=== PATIENT | male | born 1980 | race Caucasian/White ===

== ENCOUNTER 2020-01-10 20:08 | Inpatient (IN) | payer SELFPAY ==
[2020-01-10] MEDS ORDERED: Sodium Chloride 0.9% 2.5 ML Syringe FLUSH PRN (20:28)
[2020-01-10] MEDS ORDERED: Aspirin 81 MG Tab.Chew PO ONE (20:28)
[2020-01-10] MEDS ORDERED: LORazepam 2 MG/ML SDV IVPUSH ONE (20:28)
[2020-01-10] MEDS ORDERED: MVI, Adult with Vitamin K 10 ML, Thiamine 100 MG, Folic Acid 1 MG in Sodium Chloride 0.... IV ONE ×4 (20:30)
--- NOTE | 2020-01-10 20:32 | EDM.PDOC ---
ED HPI GENERAL MEDICAL PROBLEM - General Chief Complaint: Cardiovascular Problem Stated Complaint: SOB Time Seen by Provider: 01/10/20 20:16 Source of Information: Reports: Patient History Limitations: Reports: No Limitations - History of Present Illness INITIAL COMMENTS - FREE TEXT/NARRATIVE: 39-year-old male with history of hypertension and anxiety presents with left sided nonradiating chest "burning" discomfort 30 minutes prior to arrival, associated with shortness of breath and feeling shaky. He was prescribed hypertensive medications but he did not take it electively because of concerns of how it might make him feel. He started his alcohol drinking binge about 2 weeks ago when his left him, he is not suicidal, but he has been drinking every day since. His last drink was 6 hours ago. He denies drug use. He admits that he is in a lot of stress. ROS: A 10-point review of systems, other than pertinent positives and negatives as stated per HPI, is otherwise negative PHYSICAL EXAM General: AOx4, GCS = 15, anxious HEENT: dry mucous membrane Neck: supple, no meningismus, no Kernig or Brudzinski Cardiac: S1S2 tachycardia Respiratory: CTAB, no crackles or rales, no wheezing Abdomen: Soft, nontender, no rebound or guarding, nondistended, no pulsatile mass. Back: nontender Musculoskeletal: NVI distally, no deformity, tremulous Neuro: No focal deficits, CN 2 - 12 WNL. MEDICAL DECISION MAKING: I reviewed the patients past medical records, lab and radiographic findings. I discussed the case with family members. My differential diagnosis included: Electrolyte abnormality, anxiety, alcohol withdrawal, ACS. Patient exhibited transaminitis, his lipase was 2250, his chest pain is likely secondary to-year-old pancreatitis. His EKG was unremarkable, his troponin was also unremarkable. I do not suspect underlying ACS. His alcohol level was undetectable, he was tremulous and tachycardic, he was exhibiting alcohol withdrawal, improved with IV Ativan in the ER. - Related Data Allergies Allergy/AdvReac Type Severity Reaction Status Date / Time cough medicine Allergy Seizure Uncoded 01/10/20 20:15 Home Meds: Home Meds High Blood Pressure 1 tab PO DAILY 01/10/20 [History] LORazepam [Ativan] 1 mg PO ASDIRECTED 01/10/20 [History] Past Medical History Cardiovascular History: Reports: Hypertension Respiratory History: Reports: None Genitourinary History: Reports: None Musculoskeletal History: Reports: None Neurological History: Reports: None Psychiatric History: Reports: Anxiety Endocrine/Metabolic History: Reports: None Hematologic History: Reports: None Immunologic History: Reports: None Oncologic (Cancer) History: Reports: None Dermatologic History: Reports: None - Infectious Disease History Infectious Disease History: Reports: None - Past Surgical History Head Surgeries/Procedures: Reports: None Other HEENT Surgeries/Procedures: LABRUM GI Surgical History: Reports: Appendectomy Social & Family History - Tobacco Use Smoking Status *Q: Current Every Day Smoker Years of Tobacco use: 16 Packs/Tins Daily: 0.5 - Recreational Drug Use Recreational Drug Use: No ED ROS GENERAL - Review of Systems Review Of Systems: Comprehensive ROS is negative, except as noted in HPI. ED EXAM, GENERAL - Physical Exam Exam: See Below (see dictation) EKG INTERPRETATION EKG Interpretation Comments: 108 bpm, Sinus tach, normal QRS interval, no STEMI. EKG and rhythm strip interpreted by me at 0810 Course - Vital Signs Last Recorded V/S: Last Vital Signs Temp 97.1 F 01/10/20 20:12 Pulse 84 01/10/20 23:30 Resp 18 01/10/20 23:30 BP 171/105 H 01/10/20 23:30 Pulse Ox 97 01/10/20 23:30 - Orders/Labs/Meds Orders: Active Orders 24 hr Category Date Time Status Admission Status [Patient Status] [ADT] Stat ADT 01/11/20 00:08 Ordered EKG Documentation Completion [RC] STAT Care 06/20/20 20:28 Active TROPONIN I [CHEM] Stat Lab 01/11/20 00:05 Ordered Sodium Chloride 0.9% [Saline Flush] Med 01/10/20 20:28 Active 2.5 ml FLUSH ASDIRECTED PRN Saline Lock Insert [OM.PC] Stat Oth 01/10/20 20:28 Ordered Medication Orders Sodium Chloride (Saline Flush) 2.5 ml FLUSH ASDIRECTED PRN PRN Reason: Keep Vein Open Labs: Laboratory Tests 01/10/20 01/10/20 01/10/20 Range/Units 20:15 20:15 20:15 WBC 8.49 (4.0-11.0) K/uL RBC 4.58 (4.50-5.90) M/uL Hgb 15.7 (13.0-17.0) g/dL Hct 45.0 (38.0-50.0) % MCV 98.3 H (80.0-98.0) fL MCH 34.3 H (27.0-32.0) pg MCHC 34.9 (31.0-37.0) g/dL RDW Std Deviation 49.2 (28.0-62.0) fl RDW Coeff of Katlyn 14 (11.0-15.0) % Plt Count 173 (150-400) K/uL MPV 10.10 (7.40-12.00) fL Neut % (Auto) 69.7 (48.0-80.0) % Lymph % (Auto) 15.1 L (16.0-40.0) % [place] % (Auto) 14.3 (0.0-15.0) % Eos % (Auto) 0.4 (0.0-7.0) % Baso % (Auto) 0.5 (0.0-1.5) % Neut # (Auto) 5.9 H (1.4-5.7) K/uL Lymph # (Auto) 1.3 (0.6-2.4) K/uL [place] # (Auto) 1.2 H (0.0-0.8) K/uL Eos # (Auto) 0.0 (0.0-0.7) K/uL Baso # (Auto) 0.0 (0.0-0.1) K/uL Nucleated RBC % 0.0 /100WBC Nucleated RBCs # 0 K/uL Sodium 137 (136-148) mmol/L Potassium 3.4 L (3.5-5.1) mmol/L Chloride 99 (98-107) mmol/L Carbon Dioxide 24.5 (21.0-32.0) mmol/L BUN 13 (7.0-18.0) mg/dL Creatinine 0.9 (0.8-1.3) mg/dL Est Cr Clr Drug Dosing 112.38 mL/min Estimated GFR (MDRD) > 60.0 ml/min Glucose 132 H (74-106) mg/dL Calcium 9.8 (8.5-10.1) mg/dL Phosphorus 3.9 (2.6-4.7) mg/dL Magnesium 1.7 L (1.8-2.4) mg/dL Total Bilirubin 1.3 H (0.2-1.0) mg/dL AST 161 H (15-37) IU/L ALT 148 H (14-63) IU/L Alkaline Phosphatase 105 (46-116) U/L Troponin I <0.050 (0.000-0.056) ng/mL Total Protein 8.4 H (6.4-8.2) g/dL Albumin 4.5 (3.4-5.0) g/dL Globulin 3.9 (2.6-4.0) g/dL Albumin/Globulin Ratio 1.2 (0.9-1.6) Lipase 2250 H (73-393) U/L Free T4 0.96 (0.76-1.46) ng/dL TSH 3rd Generation 2.18 (0.36-3.74) uIU/mL Urine Color Urine Appearance Urine pH (5.0-8.0) Ur Specific [place] (1.001-1.035) Urine Protein (NEGATIVE) mg/dL Urine Glucose (UA) (NEGATIVE) mg/dL Urine Ketones (NEGATIVE) mg/dL Urine Occult Blood (NEGATIVE) Urine Nitrite (NEGATIVE) Urine Bilirubin (NEGATIVE) Urine Urobilinogen (<2.0) EU/dL Ur Leukocyte Esterase (NEGATIVE) Urine RBC (0-2/HPF) Urine WBC (0-5/HPF) Ur Epithelial Cells (NONE-FEW) Calcium Oxalate Crystal (NEGATIVE) Urine Bacteria (NEGATIVE) Urine Mucus (NONE-MOD) Urine Opiates Screen (NEGATIVE) Ur Oxycodone Screen (NEGATIVE) Urine Methadone Screen (NEGATIVE) Ur Barbiturates Screen (NEGATIVE) Ur Phencyclidine Scrn (NEGATIVE) Ur Amphetamine Screen (NEGATIVE) U Methamphetamines Scrn (NEGATIVE) U Benzodiazepines Scrn (NEGATIVE) U Cocaine Metab Screen (NEGATIVE) U Marijuana (THC) Screen (NEGATIVE) Ethyl Alcohol < 3.0 mg/dL 01/10/20 01/10/20 Range/Units 23:30 23:30 WBC (4.0-11.0) K/uL RBC (4.50-5.90) M/uL Hgb (13.0-17.0) g/dL Hct (38.0-50.0) % MCV (80.0-98.0) fL MCH (27.0-32.0) pg MCHC (31.0-37.0) g/dL RDW Std Deviation (28.0-62.0) fl RDW Coeff of [place] (11.0-15.0) % Plt Count (150-400) K/uL MPV (7.40-12.00) fL Neut % (Auto) (48.0-80.0) % Lymph % (Auto) (16.0-40.0) % [place] % (Auto) (0.0-15.0) % Eos % (Auto) (0.0-7.0) % Baso % (Auto) (0.0-1.5) % Neut # (Auto) (1.4-5.7) K/uL Lymph # (Auto) (0.6-2.4) K/uL [place] # (Auto) (0.0-0.8) K/uL Eos # (Auto) (0.0-0.7) K/uL Baso # (Auto) (0.0-0.1) K/uL Nucleated RBC % /100WBC Nucleated RBCs # K/uL Sodium (136-148) mmol/L Potassium (3.5-5.1) mmol/L Chloride (98-107) mmol/L Carbon Dioxide (21.0-32.0) mmol/L BUN (7.0-18.0) mg/dL Creatinine (0.8-1.3) mg/dL Est Cr Clr Drug Dosing mL/min Estimated GFR (MDRD) ml/min Glucose (74-106) mg/dL Calcium (8.5-10.1) mg/dL Phosphorus (2.6-4.7) mg/dL Magnesium (1.8-2.4) mg/dL Total Bilirubin (0.2-1.0) mg/dL AST (15-37) IU/L ALT (14-63) IU/L Alkaline Phosphatase (46-116) U/L Troponin I (0.000-0.056) ng/mL Total Protein (6.4-8.2) g/dL Albumin (3.4-5.0) g/dL Globulin (2.6-4.0) g/dL Albumin/Globulin Ratio (0.9-1.6) Lipase (73-393) U/L Free T4 (0.76-1.46) ng/dL TSH 3rd Generation (0.36-3.74) uIU/mL Urine Color YELLOW Urine Appearance SLT CLOUDY Urine pH 6.5 (5.0-8.0) Ur Specific [place] 1.025 (1.001-1.035) Urine Protein TRACE H (NEGATIVE) mg/dL Urine Glucose (UA) NEGATIVE (NEGATIVE) mg/dL Urine Ketones NEGATIVE (NEGATIVE) mg/dL Urine Occult Blood MODERATE H (NEGATIVE) Urine Nitrite NEGATIVE (NEGATIVE) Urine Bilirubin NEGATIVE (NEGATIVE) Urine Urobilinogen 1.0 (<2.0) EU/dL Ur Leukocyte Esterase NEGATIVE (NEGATIVE) Urine RBC 5-10 (0-2/HPF) Urine WBC 0-3 (0-5/HPF) Ur Epithelial Cells RARE (NONE-FEW) Calcium Oxalate Crystal MODERATE (NEGATIVE) Urine Bacteria FEW (NEGATIVE) Urine Mucus MODERATE (NONE-MOD) Urine Opiates Screen NEGATIVE (NEGATIVE) Ur Oxycodone Screen NEGATIVE (NEGATIVE) Urine Methadone Screen NEGATIVE (NEGATIVE) Ur Barbiturates Screen NEGATIVE (NEGATIVE) Ur Phencyclidine Scrn NEGATIVE (NEGATIVE) Ur Amphetamine Screen NEGATIVE (NEGATIVE) U Methamphetamines Scrn NEGATIVE (NEGATIVE) U Benzodiazepines Scrn POSITIVE (NEGATIVE) U Cocaine Metab Screen NEGATIVE (NEGATIVE) U Marijuana (THC) Screen NEGATIVE (NEGATIVE) Ethyl Alcohol mg/dL Meds: Medications Generic Name Dose Route Start Last Admin Trade Name Freq PRN Reason Stop Dose Admin Sodium Chloride 2.5 ml 01/10/20 20:28 Saline Flush FLUSH ASDIRECTED PRN Keep Vein Open Discontinued Medications Generic Name Dose Route Start Last Admin Trade Name oJdy PRN Reason Stop Dose Admin Aspirin 324 mg 01/10/20 20:28 01/10/20 20:50 Aspirin PO 01/10/20 20:29 324 mg ONETIME ONE Administration Chlordiazepoxide HCl 10 mg 01/11/20 00:10 Librium PO 01/11/20 00:11 ONETIME ONE Multivitamins/Minerals 10 ml/ 1,011.2 mls @ 999 mls/hr 01/10/20 20:30 01/10/20 21:29 Thiamine HCl 100 mg/ Folic IV 01/10/20 21:30 999 mls/hr Acid 1 mg/ Sodium Chloride ONETIME ONE Administration Metoprolol Tartrate 5 mg/ 55 mls @ 100 mls/hr 01/10/20 20:35 01/10/20 21:45 Sodium Chloride IV 01/10/20 21:07 Not Given ONETIME ONE Lorazepam 2 mg 01/10/20 20:28 01/10/20 20:57 Ativan IVPUSH 01/10/20 20:29 2 mg ONETIME ONE Administration Metoprolol Tartrate Confirm 01/10/20 20:42 01/10/20 20:47 Lopressor Administered 01/10/20 20:43 5 mg Dose Administration 5 [facility] Re-Assessments/Exams Free Text/Narrative Re-Assessment/Exam: 01/10/20 20:39 Ordered banana bag 1 L, Ativan 2 mg IV, metoprolol 5 mg IV after rechecking his blood pressure and it is still high. 01/11/20 00:[address] barba, who agrees to admit to obs/tele and assume care at this point. The hospitalist's documentation supersedes all other documentation on this patient with regard to any conflicts or discrepancies from this point forward. Any emergency conditions have been treated to the ability of the ED prior to admission. Departure - Departure Time of Disposition: 00:13 Disposition: Admitted As Inpatient 68 Condition: Good Clinical Impression: Pancreatitis, Transaminitis, Opiate withdrawal, Noncompliance with medication regimen, Chest pain Referrals: PCP,Unknown [Ordering Only Provider] - Forms: ED Department Discharge Sepsis Event Note (ED) - Evaluation Sepsis Screening Result: No Definite Risk - Focused Exam Vital Signs: Vital Signs Temp Pulse Pulse Resp BP BP Pulse Ox 01/10/20 23:30 84 18 171/105 H 97 01/10/20 21:01 99 169/109 H 01/10/20 20:59 90 165/111 H 01/10/20 20:56 99 175/11 H 01/10/20 20:54 90 117/114 H 01/10/20 20:53 97 179/119 H 01/10/20 20:49 97 183/115 H 01/10/20 20:47 109 H 183/105 H 01/10/20 20:12 97.1 F 111 H 24 H 205/123 H 97 - My Orders Last 24 Hours: My Active Orders 01/10/20 20:28 EKG Documentation Completion [RC] STAT Sodium Chloride 0.9% [Saline Flush] 2.5 ml FLUSH ASDIRECTED PRN Saline Lock Insert [OM.PC] Stat 01/11/20 00:05 TROPONIN I [CHEM] Stat 01/11/20 00:08 Admission Status [Patient Status] [ADT] Stat - Assessment/Plan Last 24 Hours: My Active Orders 01/10/20 20:28 EKG Documentation Completion [RC] STAT Sodium Chloride 0.9% [Saline Flush] 2.5 ml FLUSH ASDIRECTED PRN Saline Lock Insert [OM.PC] Stat 01/11/20 00:05 TROPONIN I [CHEM] Stat 01/11/20 00:08 Admission Status [Patient Status] [ADT] Stat
[2020-01-10] MEDS ORDERED: Metoprolol Tartrate 5 MG in Sodium Chloride 0.9% 50 ML IV ONE (20:35)
[2020-01-10] MEDS ORDERED: Metoprolol Tartrate 5 MG/5 ML SDV ONE (20:42)
[2020-01-10 20:45] LABS: BLOOD UREA NITROGEN,BUN 13 mg/dL (7.0-18.0); CARBON DIOXIDE,CO2 24.5 mmol/L (21.0-32.0); CHLORIDE,CL 99 mmol/L (98-107); GLUCOSE RANDOM 132 mg/dL (74-106); POTASSIUM,K 3.4 mmol/L (3.5-5.1); SODIUM,NA 137 mmol/L (136-148)
[2020-01-10 21:03] LABS: LIPASE 2250 U/L (73-393)
--- NOTE | 2020-01-10 21:36 | CR ---
Chest: 2 views of the chest were obtained. Comparison: No previous chest imaging is available. Heart size and mediastinum are normal. Lungs show no acute parenchymal change. Bony structures shows an old healed right upper rib fracture. Nothing acute is seen within the visualized osseous structures. Impression: 1. Nothing acute is appreciated on 2 view chest x-ray. Diagnostic code #2 Study was dictated in MDT
[2020-01-11] MEDS ORDERED: chlordiazePOXIDE 10 MG Cap PO ONE (00:10)
[2020-01-11] MEDS ORDERED: LORazepam 2 MG/ML SDV IVPUSH PRN (00:47)
[2020-01-11] MEDS ORDERED: Ondansetron 4 MG/2 ML SDV IVPUSH PRN (00:49)
[2020-01-11] MEDS ORDERED: Ketorolac 15 MG/ML SDV IVPUSH PRN (00:50)
[2020-01-11] MEDS ORDERED: Albuterol/Ipratropium 3.0-0.5 MG/3 ML Neb Soln NEB PRN (00:55)
[2020-01-11] MEDS ORDERED: 50% Dextrose in Water 50 ML Syringe IVPUSH PRN (00:57)
[2020-01-11] MEDS: Heparin Sodium 5,000 Units/ML Vial SUBCUT SCH ×3 (01:36→17:07)
[2020-01-11] MEDS: Lactated Ringers 1,000 ML IV SCH ×2 (02:47→09:28)
[2020-01-11 06:40] LABS: BLOOD UREA NITROGEN,BUN 11 mg/dL (7.0-18.0); CARBON DIOXIDE,CO2 28.7 mmol/L (21.0-32.0); CHLORIDE,CL 104 mmol/L (98-107); GLUCOSE RANDOM 91 mg/dL (74-106); POTASSIUM,K 4.8 mmol/L (3.5-5.1); SODIUM,NA 139 mmol/L (136-148)
[2020-01-11] MEDS: Pantoprazole 40 MG in Sodium Chloride 0.9% 10 ML IV SCH (06:47)
[2020-01-11 06:54] LABS: LIPASE 1871 U/L (73-393)
[2020-01-11] MEDS: Labetalol 100 MG/20 ML MDV IVPUSH PRN ×2 (08:20→12:23)
[2020-01-11] MEDS: chlordiazePOXIDE 25 MG Cap PO SCH ×2 (08:25→20:06)
--- NOTE | 2020-01-11 09:43 | PCM.HP.2 ---
H&P History of Present Illness - General Date of Service: 01/11/20 Admit Problem/Dx: Admission Diagnosis/Problem Admission Diagnosis/Problem Pancreatitis - History of Present Illness Initial Comments - Free Text/Narative: 39-year-old male with history of hypertension, non-compliance, and anxiety presents with left sided chest discomfort 30 minutes prior to arrival, associated with shortness of breath and feeling shaky. Patient states that he has been prescribed antihypertensives but didnt want to take them. He states his recently him, and since then he started maranda drinking, he is not suicidal, but he has been drinking every day since. His last drink was 6 hours before coming to ER. He denies drug use. In the ER patient was found to be in alcohol withdrawal, and hypertensive urgency, and had elevated lipase, suggestive of pancreatitis. Received IV benzo, eventually was admitted to [facility] for further management. Trop was negative, EKG didn't show ST, T wave ischemic changes. During my encounter patient was much calmer, CIWA was 3, Denied sob, palpitations, N/V, abdominal pain, hallucinations, SI/HI, states he is just upset with his wifes betrayal as she left him for another person. Patient is very concerned about his "elevated liver enzymes" was "thinking he has cirrhosis. - Related Data Allergies/Adverse Reactions: Allergies Allergy/AdvReac Type Severity Reaction Status Date / Time codeine Allergy Seizure Verified 01/11/20 03:40 Home Medications: Home Meds High Blood Pressure 1 tab PO DAILY 01/10/20 [History] LORazepam [Ativan] 1 mg PO BID PRN 01/10/20 [History] Past Medical History Cardiovascular History: Reports: Hypertension Respiratory History: Reports: None Genitourinary History: Reports: None Musculoskeletal History: Reports: None Neurological History: Reports: None Psychiatric History: Reports: Anxiety Endocrine/Metabolic History: Reports: None Hematologic History: Reports: None Immunologic History: Reports: None Oncologic (Cancer) History: Reports: None Dermatologic History: Reports: None - Infectious Disease History Infectious Disease History: Reports: None - Past Surgical History Head Surgeries/Procedures: Reports: None Other HEENT Surgeries/Procedures: LABRUM GI Surgical History: Reports: Appendectomy Social & Family History - Tobacco Use Smoking Status *Q: Current Every Day Smoker Years of Tobacco use: 18 Packs/Tins Daily: 1 - Caffeine Use Caffeine Use: Reports: Coffee - Alcohol Use Days Per Week of Alcohol Use: 3 Number of Drinks Per Day: 2 Total Drinks Per Week: 6 Date of Last Drink: 01/10/20 Time of Last Drink: 12:00 - Recreational Drug Use Recreational Drug Use: No H&P Review of Systems - Review of Systems: Review Of Systems: See Below General: Reports: Weakness, Fatigue. Denies: Fever, Chills, Malaise HEENT: Denies: Contact Lenses, Dysphasia Pulmonary: Denies: Shortness of Breath, Wheezing Cardiovascular: Denies: Chest Pain, Palpitations, Dyspnea on Exertion Gastrointestinal: Denies: Abdominal Pain, Anorexia, Black Stool, Diarrhea, Decreased Appetite Genitourinary: Denies: Dysuria, Frequency, Burning Musculoskeletal: Denies: Neck Pain, Shoulder Pain, Arm Pain Skin: Denies: Cyanosis, Jaundice Exam - Exam Exam: See Below - Vital Signs Vital Signs: Last Vital Signs Temp 36.6 C 01/11/20 07:45 Pulse 68 01/11/20 08:00 Resp 17 01/11/20 08:00 BP 182/112 H 01/11/20 08:00 Pulse Ox 97 01/11/20 08:00 Weight: 79.333 kg - Exam General: Alert, Oriented HEENT: Conjunctiva Clear Neck: Supple, Trachea Midline Lungs: Clear to Auscultation, Normal Respiratory Effort Cardiovascular: Regular Rate, Regular Rhythm Neurological: Cranial Nerves Intact, Strength Equal Bilateral, Normal Speech, Normal Tone Neuro Extensive - Mental Status: Alert, Oriented x3, Normal Mood/Affect, Normal Cognition Neuro Extensive - Motor, Sensory, Reflexes: CN II-XII Intact, Normal Reflexes Psychiatric: Alert, Normal Affect, Anxious. No: Suicidal Ideation, Homicidal Ideation, Hallucinations - Patient Data Lab Results Last 24 hrs: Laboratory Results - last 24 hr 01/10/20 01/10/20 01/10/20 Range/Units 20:15 20:15 20:15 WBC 8.49 (4.0-11.0) K/uL RBC 4.58 (4.50-5.90) M/uL Hgb 15.7 (13.0-17.0) g/dL Hct 45.0 (38.0-50.0) % MCV 98.3 H (80.0-98.0) fL MCH 34.3 H (27.0-32.0) pg MCHC 34.9 (31.0-37.0) g/dL RDW Std Deviation 49.2 (28.0-62.0) fl RDW Coeff of Katlyn 14 (11.0-15.0) % Plt Count 173 (150-400) K/uL MPV 10.10 (7.40-12.00) fL Neut % (Auto) 69.7 (48.0-80.0) % Lymph % (Auto) 15.1 L (16.0-40.0) % [place] % (Auto) 14.3 (0.0-15.0) % Eos % (Auto) 0.4 (0.0-7.0) % Baso % (Auto) 0.5 (0.0-1.5) % Neut # (Auto) 5.9 H (1.4-5.7) K/uL Lymph # (Auto) 1.3 (0.6-2.4) K/uL [place] # (Auto) 1.2 H (0.0-0.8) K/uL Eos # (Auto) 0.0 (0.0-0.7) K/uL Baso # (Auto) 0.0 (0.0-0.1) K/uL Nucleated RBC % 0.0 /100WBC Nucleated RBCs # 0 K/uL Sodium 137 (136-148) mmol/L Potassium 3.4 L (3.5-5.1) mmol/L Chloride 99 (98-107) mmol/L Carbon Dioxide 24.5 (21.0-32.0) mmol/L BUN 13 (7.0-18.0) mg/dL Creatinine 0.9 (0.8-1.3) mg/dL Est Cr Clr Drug Dosing 112.38 mL/min Estimated GFR (MDRD) > 60.0 ml/min Glucose 132 H (74-106) mg/dL Calcium 9.8 (8.5-10.1) mg/dL Phosphorus 3.9 (2.6-4.7) mg/dL Magnesium 1.7 L (1.8-2.4) mg/dL Total Bilirubin 1.3 H (0.2-1.0) mg/dL AST 161 H (15-37) IU/L ALT 148 H (14-63) IU/L Alkaline Phosphatase 105 (46-116) U/L Troponin I <0.050 (0.000-0.056) ng/mL Total Protein 8.4 H (6.4-8.2) g/dL Albumin 4.5 (3.4-5.0) g/dL Globulin 3.9 (2.6-4.0) g/dL Albumin/Globulin Ratio 1.2 (0.9-1.6) Lipase 2250 H (73-393) U/L Free T4 0.96 (0.76-1.46) ng/dL TSH 3rd Generation 2.18 (0.36-3.74) uIU/mL Urine Color Urine Appearance Urine pH (5.0-8.0) Ur Specific [place] (1.001-1.035) Urine Protein (NEGATIVE) mg/dL Urine Glucose (UA) (NEGATIVE) mg/dL Urine Ketones (NEGATIVE) mg/dL Urine Occult Blood (NEGATIVE) Urine Nitrite (NEGATIVE) Urine Bilirubin (NEGATIVE) Urine Urobilinogen (<2.0) EU/dL Ur Leukocyte Esterase (NEGATIVE) Urine RBC (0-2/HPF) Urine WBC (0-5/HPF) Ur Epithelial Cells (NONE-FEW) Calcium Oxalate Crystal (NEGATIVE) Urine Bacteria (NEGATIVE) Urine Mucus (NONE-MOD) Urine Opiates Screen (NEGATIVE) Ur Oxycodone Screen (NEGATIVE) Urine Methadone Screen (NEGATIVE) Ur Barbiturates Screen (NEGATIVE) Ur Phencyclidine Scrn (NEGATIVE) Ur Amphetamine Screen (NEGATIVE) U Methamphetamines Scrn (NEGATIVE) U Benzodiazepines Scrn (NEGATIVE) U Cocaine Metab Screen (NEGATIVE) U Marijuana (THC) Screen (NEGATIVE) Ethyl Alcohol < 3.0 mg/dL 01/10/20 01/10/20 01/11/20 Range/Units 23:30 23:30 00:25 WBC (4.0-11.0) K/uL RBC (4.50-5.90) M/uL Hgb (13.0-17.0) g/dL Hct (38.0-50.0) % MCV (80.0-98.0) fL MCH (27.0-32.0) pg MCHC (31.0-37.0) g/dL RDW Std Deviation (28.0-62.0) fl RDW Coeff of Katlyn (11.0-15.0) % Plt Count (150-400) K/uL MPV (7.40-12.00) fL Neut % (Auto) (48.0-80.0) % Lymph % (Auto) (16.0-40.0) % [place] % (Auto) (0.0-15.0) % Eos % (Auto) (0.0-7.0) % Baso % (Auto) (0.0-1.5) % Neut # (Auto) (1.4-5.7) K/uL Lymph # (Auto) (0.6-2.4) K/uL [place] # (Auto) (0.0-0.8) K/uL Eos # (Auto) (0.0-0.7) K/uL Baso # (Auto) (0.0-0.1) K/uL Nucleated RBC % /100WBC Nucleated RBCs # K/uL Sodium (136-148) mmol/L Potassium (3.5-5.1) mmol/L Chloride (98-107) mmol/L Carbon Dioxide (21.0-32.0) mmol/L BUN (7.0-18.0) mg/dL Creatinine (0.8-1.3) mg/dL Est Cr Clr Drug Dosing mL/min Estimated GFR (MDRD) ml/min Glucose (74-106) mg/dL Calcium (8.5-10.1) mg/dL Phosphorus (2.6-4.7) mg/dL Magnesium (1.8-2.4) mg/dL Total Bilirubin (0.2-1.0) mg/dL AST (15-37) IU/L ALT (14-63) IU/L Alkaline Phosphatase (46-116) U/L Troponin I < 0.050 (0.000-0.056) ng/mL Total Protein (6.4-8.2) g/dL Albumin (3.4-5.0) g/dL Globulin (2.6-4.0) g/dL Albumin/Globulin Ratio (0.9-1.6) Lipase (73-393) U/L Free T4 (0.76-1.46) ng/dL TSH 3rd Generation (0.36-3.74) uIU/mL Urine Color YELLOW Urine Appearance SLT CLOUDY Urine pH 6.5 (5.0-8.0) Ur Specific [place] 1.025 (1.001-1.035) Urine Protein TRACE H (NEGATIVE) mg/dL Urine Glucose (UA) NEGATIVE (NEGATIVE) mg/dL Urine Ketones NEGATIVE (NEGATIVE) mg/dL Urine Occult Blood MODERATE H (NEGATIVE) Urine Nitrite NEGATIVE (NEGATIVE) Urine Bilirubin NEGATIVE (NEGATIVE) Urine Urobilinogen 1.0 (<2.0) EU/dL Ur Leukocyte Esterase NEGATIVE (NEGATIVE) Urine RBC 5-10 (0-2/HPF) Urine WBC 0-3 (0-5/HPF) Ur Epithelial Cells RARE (NONE-FEW) Calcium Oxalate Crystal MODERATE (NEGATIVE) Urine Bacteria FEW (NEGATIVE) Urine Mucus MODERATE (NONE-MOD) Urine Opiates Screen NEGATIVE (NEGATIVE) Ur Oxycodone Screen NEGATIVE (NEGATIVE) Urine Methadone Screen NEGATIVE (NEGATIVE) Ur Barbiturates Screen NEGATIVE (NEGATIVE) Ur Phencyclidine Scrn NEGATIVE (NEGATIVE) Ur Amphetamine Screen NEGATIVE (NEGATIVE) U Methamphetamines Scrn NEGATIVE (NEGATIVE) U Benzodiazepines Scrn POSITIVE (NEGATIVE) U Cocaine Metab Screen NEGATIVE (NEGATIVE) U Marijuana (THC) Screen NEGATIVE (NEGATIVE) Ethyl Alcohol mg/dL 01/11/20 01/11/20 Range/Units 06:15 06:15 WBC 5.99 (4.0-11.0) K/uL RBC 4.04 L (4.50-5.90) M/uL Hgb 13.6 (13.0-17.0) g/dL Hct 40.4 (38.0-50.0) % MCV 100.0 H (80.0-98.0) fL MCH 33.7 H (27.0-32.0) pg MCHC 33.7 (31.0-37.0) g/dL RDW Std Deviation 50.6 (28.0-62.0) fl RDW Coeff of Katlyn 14 (11.0-15.0) % Plt Count 144 L (150-400) K/uL MPV 9.90 (7.40-12.00) fL Neut % (Auto) 53.2 (48.0-80.0) % Lymph % (Auto) 28.5 (16.0-40.0) % [place] % (Auto) 13.9 (0.0-15.0) % Eos % (Auto) 3.7 (0.0-7.0) % Baso % (Auto) 0.7 (0.0-1.5) % Neut # (Auto) 3.2 (1.4-5.7) K/uL Lymph # (Auto) 1.7 (0.6-2.4) K/uL [place] # (Auto) 0.8 (0.0-0.8) K/uL Eos # (Auto) 0.2 (0.0-0.7) K/uL Baso # (Auto) 0.0 (0.0-0.1) K/uL Nucleated RBC % 0.0 /100WBC Nucleated RBCs # 0 K/uL Sodium 139 (136-148) mmol/L Potassium 4.8 (3.5-5.1) mmol/L Chloride 104 (98-107) mmol/L Carbon Dioxide 28.7 (21.0-32.0) mmol/L BUN 11 (7.0-18.0) mg/dL Creatinine 0.8 (0.8-1.3) mg/dL Est Cr Clr Drug Dosing 130.54 mL/min Estimated GFR (MDRD) > 60.0 ml/min Glucose 91 (74-106) mg/dL Calcium 8.7 (8.5-10.1) mg/dL Phosphorus 4.4 (2.6-4.7) mg/dL Magnesium 1.7 L (1.8-2.4) mg/dL Total Bilirubin 1.4 H (0.2-1.0) mg/dL AST 119 H (15-37) IU/L ALT 122 H (14-63) IU/L Alkaline Phosphatase 81 (46-116) U/L Troponin I (0.000-0.056) ng/mL Total Protein 6.7 (6.4-8.2) g/dL Albumin 3.5 (3.4-5.0) g/dL Globulin 3.2 (2.6-4.0) g/dL Albumin/Globulin Ratio 1.1 (0.9-1.6) Lipase 1871 H (73-393) U/L Free T4 (0.76-1.46) ng/dL TSH 3rd Generation (0.36-3.74) uIU/mL Urine Color Urine Appearance Urine pH (5.0-8.0) Ur Specific [place] (1.001-1.035) Urine Protein (NEGATIVE) mg/dL Urine Glucose (UA) (NEGATIVE) mg/dL Urine Ketones (NEGATIVE) mg/dL Urine Occult Blood (NEGATIVE) Urine Nitrite (NEGATIVE) Urine Bilirubin (NEGATIVE) Urine Urobilinogen (<2.0) EU/dL Ur Leukocyte Esterase (NEGATIVE) Urine RBC (0-2/HPF) Urine WBC (0-5/HPF) Ur Epithelial Cells (NONE-FEW) Calcium Oxalate Crystal (NEGATIVE) Urine Bacteria (NEGATIVE) Urine Mucus (NONE-MOD) Urine Opiates Screen (NEGATIVE) Ur Oxycodone Screen (NEGATIVE) Urine Methadone Screen (NEGATIVE) Ur Barbiturates Screen (NEGATIVE) Ur Phencyclidine Scrn (NEGATIVE) Ur Amphetamine Screen (NEGATIVE) U Methamphetamines Scrn (NEGATIVE) U Benzodiazepines Scrn (NEGATIVE) U Cocaine Metab Screen (NEGATIVE) U Marijuana (THC) Screen (NEGATIVE) Ethyl Alcohol mg/dL Result Diagrams: 01/11/20 06:15 01/11/20 06:15 Sepsis Event Note - Evaluation Sepsis Screening Result: No Definite Risk - Focused Exam Vital Signs: Vital Signs Temp Pulse Resp BP Pulse Ox Pulse Ox 01/11/20 08:00 68 17 182/112 H 97 01/11/20 07:45 36.6 C 74 18 188/114 H 97 01/11/20 04:00 37.0 C 88 18 158/98 H 98 01/11/20 02:00 97 01/11/20 01:10 37.0 C 74 18 168/102 H 97 01/10/20 23:30 84 18 171/105 H 97 Date Exam was Performed: 01/11/20 Time Exam was Performed: 12:56 - Problem List (1) Alcohol withdrawal SNOMED Code(s): 328146704 ICD Code: F10.239 - ALCOHOL DEPENDENCE WITH WITHDRAWAL, UNSPECIFIED Status: Acute Current Visit: Yes (2) Alcohol abuse SNOMED Code(s): 58954321 ICD Code: F10.10 - ALCOHOL ABUSE, UNCOMPLICATED Status: Acute Current Visit: Yes (3) Chest pain SNOMED Code(s): 82446519 ICD Code: R07.9 - CHEST PAIN, UNSPECIFIED Status: Acute Current Visit: Yes (4) Noncompliance with medication regimen SNOMED Code(s): 636358559 ICD Code: Z91.14 - PATIENT'S OTHER NONCOMPLIANCE WITH MEDICATION REGIMEN St atus: Acute Current Visit: Yes (5) Pancreatitis SNOMED Code(s): 53706006 ICD Code: K85.90 - ACUTE PANCREATITIS WITHOUT NECROSIS OR INFECTION, UNSP Status: Acute Current Visit: Yes (6) Transaminitis SNOMED Code(s): 937185268, 305169913 ICD Code: R74.0 - NONSPEC ELEV OF LEVELS OF TRANSAMNS & LACTIC ACID DEHYDRGNSE Status: Acute Current Visit: Yes (7) Hypertension SNOMED Code(s): 42989257 ICD Code: I10 - ESSENTIAL (PRIMARY) HYPERTENSION Status: Acute Current Visit: Yes (8) Hypomagnesemia SNOMED Code(s): 672412914 ICD Code: E83.42 - HYPOMAGNESEMIA Status: Acute Current Visit: Yes Problem List Initiated/Reviewed/Updated: Yes Orders Last 24hrs: Active Orders 24 hr Category Date Time Status Admission Status [Patient Status] [ADT] Stat ADT 01/11/20 00:08 Active Ambulate [RC] ASDIRECTED Care 01/11/20 00:46 Active CIWAA Assessment [RC] Q4H Care 01/11/20 00:47 Active Oxygen Therapy Adult [Oxygen Therapy] [RC] PRN Care 01/11/20 00:54 Active RT Aerosol Therapy [RC] ASDIRECTED Care 01/11/20 00:56 Active Telemetry Monitoring [Cardiac Monitoring] [RC] . Care 01/11/20 00:52 Active DIRECTED Vital Signs [RC] Q4H Care 01/11/20 04:00 Active NPO [Nothing Per Oral Diet] [DIET] Diet 01/11/20 Breakfast Active Abdomen Ltd [US] AM Exams 01/11/20 05:11 Stop Req Abdomen Ltd [US] AM Exams 01/12/20 05:11 Ordered Albuterol/Ipratropium [DuoNeb 3.0-0.5 MG/3 ML] Med 01/11/20 00:55 Active 3 ml NEB Q4HRRT PRN Dextrose 50% in Water Med 01/11/20 00:57 Active 50 ml IVPUSH ONETIME PRN Heparin Sodium Med 01/11/20 01:00 Active 5,000 units SUBCUT Q8H Ketorolac [Toradol] Med 01/11/20 00:50 Active 15 mg IVPUSH Q4H PRN LORazepam [Ativan] Med 01/11/20 01:06 Active 1 - 2 mg PO Q4H PRN LORazepam [Ativan] Med 01/11/20 00:47 Active See Protocol IVPUSH Q4H PRN Labetalol [Normodyne] Med 01/11/20 00:50 Active 10 mg IVPUSH Q4H PRN Lactated Ringers [Ringers, Lactated] 1,000 ml Med 01/11/20 00:45 Active IV ASDIRECTED Ondansetron [Zofran] Med 01/11/20 00:49 Active 4 mg IVPUSH Q4H PRN Pantoprazole [ProTONIX IV] 40 mg Med 01/11/20 07:30 Active Sodium Chloride 0.9% [Normal Saline] 10 ml IV ACBREAKFAST Sodium Chloride 0.9% [Saline Flush] Med 01/10/20 20:28 Active 2.5 ml FLUSH ASDIRECTED PRN chlordiazePOXIDE [Librium] Med 01/11/20 09:00 Active 25 mg PO BID Saline Lock Insert [OM.PC] Stat Oth 01/10/20 20:28 Ordered Medication Orders Albuterol/Ipratropium (Duoneb 3.0-0.5 Mg/3 Ml) 3 ml NEB Q4HRRT PRN PRN Reason: Shortness of Breath Chlordiazepoxide HCl (Librium) 25 mg PO BID [facility] Last Admin: 01/11/20 08:25 Dose: 25 mg Documented by: RIVERA Dextrose/Water (Dextrose 50% In Water) 50 ml IVPUSH ONETIME PRN PRN Reason: Hypoglycemia Heparin Sodium (Porcine) (Heparin Sodium) 5,000 units SUBCUT Q8H [facility] Last Admin: 01/11/20 08:29 Dose: 5,000 units Documented by: Admin: 01/11/20 01:36 Dose: 5,000 units Documented by: KLEBER Lactated Ringer's (Ringers, Lactated) 1,000 mls @ 125 mls/hr IV ASDIRECTED [facility] Last Admin: 01/11/20 09:28 Dose: 125 mls/hr Documented by: Infusion: 01/11/20 09:28 Dose: 125 mls/hr Documented by: [id number] Admin: 01/11/20 02:47 Dose: 125 mls/hr Documented by: KLEBER Pantoprazole Sodium 40 mg/ (Sodium Chloride) 10 mls @ 300 mls/hr IV ACBREAKFAST [facility] Last Admin: 01/11/20 06:47 Dose: 300 mls/hr Documented by: KLEBER Ketorolac Tromethamine (Toradol) 15 mg IVPUSH Q4H PRN PRN Reason: Pain Stop: 01/16/20 00:50 Labetalol HCl (Normodyne) 10 mg IVPUSH Q4H PRN; Protocol PRN Reason: Hypertension Last Admin: 01/11/20 08:20 Dose: 10 mg Documented by: RIVERA Lorazepam (Ativan) 0 mg IVPUSH Q4H PRN; Protocol PRN Reason: Withdrawal Symptoms Last Admin: 01/11/20 04:16 Dose: 1 mg Documented by: KLEBER Lorazepam (Ativan) 1 - 2 mg PO Q4H PRN; Protocol PRN Reason: Withdrawal Symptoms Ondansetron HCl (Zofran) 4 mg IVPUSH Q4H PRN PRN Reason: Nausea Sodium Chloride (Saline Flush) 2.5 ml FLUSH ASDIRECTED PRN PRN Reason: Keep Vein Open Assessment/Plan Comment:: 39 y/o M admitted for alcohol withdrawal, pancreatitis, HTN urgency Was NPO overnight, will advance the diet as tolerated Lipase is improving, so are his LFTs Cont IV fluids, if able to tolerate diet, will stop fluids cont CIWA protocol Librium 10mg BID CIWA protocol Labetalol IV PRN Ambulate as tolerated Monitor and replete electrolytes as needed Thiamine and folic acid supplements counselling against alcohol abuse was provided in detail
[2020-01-11] MEDS ORDERED: Magnesium Sulfate/Water 2 GM in Premix Bag 1 BAG IV ONE (10:01)
[2020-01-11] MEDS ORDERED: Labetalol 100 MG/20 ML MDV IVPUSH PRN (13:52)
[2020-01-11] MEDS: amLODIPine 5 MG Tab PO SCH (14:35)
[2020-01-11] MEDS: LORazepam 1 MG Tab PO PRN ×2 (17:09→22:18)
[2020-01-11 17:38] LABS: HEMOGLOBIN A1C 5.2 % (4.5-6.2)
[2020-01-11] MEDS: Thiamine 100 MG Tab PO SCH (20:08)
[2020-01-11] MEDS: Hydrochlorothiazide 12.5 MG Cap PO SCH (20:08)
[2020-01-12] MEDS: Heparin Sodium 5,000 Units/ML Vial SUBCUT SCH ×3 (00:12→17:10)
[2020-01-12] MEDS: Lactated Ringers 1,000 ML IV SCH ×2 (03:25→11:22)
[2020-01-12 07:15] LABS: BLOOD UREA NITROGEN,BUN 7 mg/dL (7.0-18.0); CHLORIDE,CL 102 mmol/L (98-107); GLUCOSE RANDOM 86 mg/dL (74-106); POTASSIUM,K 3.3 mmol/L (3.5-5.1); SODIUM,NA 140 mmol/L (136-148)
[2020-01-12] MEDS: Pantoprazole 40 MG in Sodium Chloride 0.9% 10 ML IV SCH (07:19)
[2020-01-12] MEDS: Folic Acid 1 MG Tab PO SCH (09:23)
[2020-01-12] MEDS: amLODIPine 5 MG Tab PO SCH (09:24)
[2020-01-12] MEDS: chlordiazePOXIDE 25 MG Cap PO SCH (09:24)
--- NOTE | 2020-01-12 12:21 | PCM.PN ---
- General Info Date of Service: 01/12/20 Admission Dx/Problem (Free Text): Admission Diagnosis/Problem Admission Diagnosis/Problem Pancreatitis Subjective Update: DOing well this morning, had Ativan around 0500 am today. Reports no abdominal pain or N/V. Tolerated diet well. No hallucinations Functional Status: Reports: Pain Controlled, Tolerating Diet, Ambulating - Review of Systems General: Reports: No Symptoms. Denies: Fever, Weakness Pulmonary: Reports: No Symptoms. Denies: Shortness of Breath Cardiovascular: Reports: No Symptoms. Denies: Chest Pain Gastrointestinal: Reports: No Symptoms. Denies: Abdominal Pain Musculoskeletal: Reports: No Symptoms Skin: Reports: No Symptoms Neurological: Reports: Tremors Psychiatric: Reports: No Symptoms - Patient Data Vitals - Most Recent: Last Vital Signs Temp 98.9 F 01/12/20 07:54 Pulse 67 01/12/20 07:54 Resp 18 01/12/20 07:54 BP 144/94 H 01/12/20 09:24 Pulse Ox 98 01/12/20 07:54 Weight - Most Recent: 79.333 kg I&O - Last 24 Hours: Intake & Output 01/11/20 01/12/20 01/12/20 22:59 06:59 14:59 Intake Total 2131 1518 Output Total 1900 900 Balance 231 618 Lab Results Last 24 Hours: Laboratory Results - last 24 hr 01/11/20 01/12/20 01/12/20 Range/Units 06:15 06:05 06:05 WBC 4.89 (4.0-11.0) K/uL RBC 4.18 L (4.50-5.90) M/uL Hgb 14.2 (13.0-17.0) g/dL Hct 41.7 (38.0-50.0) % MCV 99.8 H (80.0-98.0) fL MCH 34.0 H (27.0-32.0) pg MCHC 34.1 (31.0-37.0) g/dL RDW Std Deviation 50.2 (28.0-62.0) fl RDW Coeff of Katlyn 14 (11.0-15.0) % Plt Count 164 (150-400) K/uL MPV 10.00 (7.40-12.00) fL Neut % (Auto) 60.1 (48.0-80.0) % Lymph % (Auto) 21.1 (16.0-40.0) % Jackson % (Auto) 13.9 (0.0-15.0) % Eos % (Auto) 4.3 (0.0-7.0) % Baso % (Auto) 0.6 (0.0-1.5) % Neut # (Auto) 2.9 (1.4-5.7) K/uL Lymph # (Auto) 1.0 (0.6-2.4) K/uL Jackson # (Auto) 0.7 (0.0-0.8) K/uL Eos # (Auto) 0.2 (0.0-0.7) K/uL Baso # (Auto) 0.0 (0.0-0.1) K/uL Nucleated RBC % 0.0 /100WBC Nucleated RBCs # 0 K/uL Sodium 140 (136-148) mmol/L Potassium 3.3 L (3.5-5.1) mmol/L Chloride 102 (98-107) mmol/L Carbon Dioxide 28.0 (21.0-32.0) mmol/L BUN 7 (7.0-18.0) mg/dL Creatinine 0.7 L (0.8-1.3) mg/dL Est Cr Clr Drug Dosing 149.19 mL/min Estimated GFR (MDRD) > 60.0 ml/min Glucose 86 (74-106) mg/dL Hemoglobin A1c 5.2 (4.5-6.2) % Calcium 9.3 (8.5-10.1) mg/dL Phosphorus 4.6 (2.6-4.7) mg/dL Magnesium 2.3 (1.8-2.4) mg/dL Total Bilirubin 1.1 H (0.2-1.0) mg/dL AST 92 H (15-37) IU/L ALT 117 H (14-63) IU/L Alkaline Phosphatase 73 (46-116) U/L Total Protein 7.3 (6.4-8.2) g/dL Albumin 3.8 (3.4-5.0) g/dL Globulin 3.5 (2.6-4.0) g/dL Albumin/Globulin Ratio 1.1 (0.9-1.6) Triglycerides 87 (0-200) mg/dL Cholesterol 195 (50-200) mg/dL LDL Cholesterol, Calc 95 (60-180) mg/dL VLDL Cholesterol 17 (5-55) mg/dL HDL Cholesterol 83 H (40-60) mg/dL Cholesterol/HDL Ratio 2.3 L (3.3-6.0) Med Orders - Current: Current Medications Albuterol/Ipratropium (Duoneb 3.0-0.5 Mg/3 Ml) 3 ml NEB Q4HRRT PRN PRN Reason: Shortness of Breath Amlodipine Besylate (Norvasc) 10 mg PO DAILY [facility] Last Admin: 01/12/20 09:24 Dose: 10 mg Documented by: Dextrose/Water (Dextrose 50% In Water) 50 ml IVPUSH ONETIME PRN PRN Reason: Hypoglycemia Folic Acid (Folic Acid) 1 mg PO DAILY [facility] Last Admin: 01/12/20 09:23 Dose: 1 mg Documented by: Heparin Sodium (Porcine) (Heparin Sodium) 5,000 units SUBCUT Q8H [facility] Last Admin: 01/12/20 09:25 Dose: 5,000 units Documented by: Hydrochlorothiazide (Hydrochlorothiazide) 12.5 mg PO BEDTIME [facility] Last Admin: 01/11/20 20:08 Dose: 12.5 mg Documented by: Pantoprazole Sodium 40 mg/ (Sodium Chloride) 10 mls @ 300 mls/hr IV ACBREAKFAST [facility] Last Admin: 01/12/20 07:19 Dose: 300 mls/hr Documented by: Ketorolac Tromethamine (Toradol) 15 mg IVPUSH Q4H PRN PRN Reason: Pain Stop: 01/16/20 00:50 Labetalol HCl (Normodyne) 20 mg IVPUSH Q4H PRN; Protocol PRN Reason: Hypertension Last Admin: 01/11/20 17:21 Dose: 20 mg Documented by: Lorazepam (Ativan) 0 mg IVPUSH Q4H PRN; Protocol PRN Reason: Withdrawal Symptoms Last Admin: 01/11/20 04:16 Dose: 1 mg Documented by: Lorazepam (Ativan) 1 - 2 mg PO Q4H PRN; Protocol PRN Reason: Withdrawal Symptoms Last Admin: 01/11/20 22:18 Dose: 1 mg Documented by: Ondansetron HCl (Zofran) 4 mg IVPUSH Q4H PRN PRN Reason: Nausea Sodium Chloride (Saline Flush) 2.5 ml FLUSH ASDIRECTED PRN PRN Reason: Keep Vein Open Thiamine HCl (Vitamin B-1) 100 mg PO BEDTIME [facility] Last Admin: 01/11/20 20:08 Dose: 100 mg Documented by: Discontinued Medications Aspirin (Aspirin) 324 mg PO ONETIME ONE Stop: 01/10/20 20:29 Last Admin: 01/10/20 20:50 Dose: 324 mg Documented by: Chlordiazepoxide HCl (Librium) 10 mg PO ONETIME ONE Stop: 01/11/20 00:11 Last Admin: 01/11/20 01:37 Dose: Not Given Documented by: Chlordiazepoxide HCl (Librium) Confirm Administered Dose 10 mg .ROUTE .STK-MED ONE Stop: 01/11/20 00:29 Last Admin: 01/11/20 00:40 Dose: 10 mg Documented by: Chlordiazepoxide HCl (Librium) 25 mg PO BID [facility] Last Admin: 01/12/20 09:24 Dose: 25 mg Documented by: Multivitamins/Minerals 10 ml/Thiamine HCl 100 mg/ Folic Acid 1 mg/ Sodium Chloride 1,011.2 mls @ 999 mls/hr IV ONETIME ONE Stop: 01/10/20 21:30 Last Admin: 01/10/20 21:29 Dose: 999 mls/hr Documented by: Metoprolol Tartrate 5 mg/ (Sodium Chloride) 55 mls @ 100 mls/hr IV ONETIME ONE Stop: 01/10/20 21:07 Last Admin: 01/10/20 21:45 Dose: Not Given Documented by: Lactated Ringer's (Ringers, Lactated) 1,000 mls @ 100 mls/hr IV ASDIRECTED [facility] Last Infusion: 01/12/20 11:26 Dose: 100 mls/hr Documented by: Magnesium Sulfate 2 gm/ Premix 50 mls @ 50 mls/hr IV ONETIME ONE Stop: 01/11/20 11:00 Last Admin: 01/11/20 10:22 Dose: 50 mls/hr Documented by: Labetalol HCl (Normodyne) 10 mg IVPUSH Q4H PRN; Protocol PRN Reason: Hypertension Last Admin: 01/11/20 12:23 Dose: 10 mg Documented by: Lorazepam (Ativan) 2 mg IVPUSH ONETIME ONE Stop: 01/10/20 20:29 Last Admin: 01/10/20 20:57 Dose: 2 mg Documented by: Metoprolol Tartrate (Lopressor) Confirm Administered Dose 5 mg .ROUTE .STK-MED ONE Stop: 01/10/20 20:43 Last Admin: 01/10/20 20:47 Dose: 5 mg Documented by: - Exam General: Alert, Oriented, Cooperative, No Acute Distress Lungs: Clear to Auscultation, Normal Respiratory Effort Cardiovascular: Regular Rate, Regular Rhythm GI/Abdominal Exam: Normal Bowel Sounds, Soft Extremities: Normal Inspection, Normal Range of Motion, No Pedal Edema Skin: Warm, Dry Neurological: No New Focal Deficit Psy/Mental Status: Alert, Withdrawal Symptoms (minor tremors noted with some ataxia when initially getting out of bed) Sepsis Event Note - Evaluation Sepsis Screening Result: No Definite Risk - Focused Exam Vital Signs: Vital Signs Temp Pulse Resp BP BP Pulse Ox Pulse Ox 01/12/20 09:24 144/94 H 01/12/20 07:54 98.9 F 67 18 144/94 H 98 01/12/20 04:00 98.7 F 85 18 140/92 H 98 01/12/20 02:00 98 Date Exam was Performed: 01/12/20 Time Exam was Performed: 12:56 - Problem List & Annotations (1) Alcohol abuse SNOMED Code(s): 17802392 Code(s): F10.10 - ALCOHOL ABUSE, UNCOMPLICATED Status: Acute Current Visit: Yes (2) Alcohol withdrawal SNOMED Code(s): 724907318 Code(s): F10.239 - ALCOHOL DEPENDENCE WITH WITHDRAWAL, UNSPECIFIED Status: Acute Current Visit: Yes (3) Hypertension SNOMED Code(s): 76137122 Code(s): I10 - ESSENTIAL (PRIMARY) HYPERTENSION Status: Acute Current Visit: Yes (4) Noncompliance with medication regimen SNOMED Code(s): 470289811 Code(s): Z91.14 - PATIENT'S OTHER NONCOMPLIANCE WITH MEDICATION REGIMEN Status: Acute Current Visit: Yes (5) Pancreatitis SNOMED Code(s): 73202633 Code(s): K85.90 - ACUTE PANCREATITIS WITHOUT NECROSIS OR INFECTION, UNSP Status: Acute Current Visit: Yes (6) Transaminitis SNOMED Code(s): 934811429, 199593738 Code(s): R74.0 - NONSPEC ELEV OF LEVELS OF TRANSAMNS & LACTIC ACID DEHYDRGNSE Status: Acute Current Visit: Yes - Problem List Review Problem List Initiated/Reviewed/Updated: Yes - Plan Plan:: 39 y/o M admitted for alcohol withdrawal, pancreatitis, HTN urgency 1. Alcohol withdrawal - Continue Ativan PRN per CIWAA - DC Librium - Monitor CIWAA - Thiamine and folic acid supplementation - Encouraged sobriety - Will give resources. 2. Pancreatitis: - Pain gone, tolerating diet - Obtain RUQ US - Lipase was trending down. - Monitor Electrolytes 3. HTN: - Improved, continue Amlodipine and HCTZ - May be elevated due to alcohol withdrawal VTE prophylaxis: Heparin Dispo: 1-2 days
--- NOTE | 2020-01-12 14:14 | US ---
Limited abdominal ultrasound: Multiple real-time images of the upper right abdomen were obtained. Liver is echogenic most likely due to fatty infiltration. Liver is also generous in size. Gallbladder shows sludge. No shadowing gallstones are seen. No gallbladder wall thickening is noted. No biliary duct dilatation is seen. Aorta shows no aneurysm. Right kidney shows no hydronephrosis or mass and has a length of 12.0 cm. Inferior vena cava is patent. Tail of pancreas is obscured from bowel gas. Other portions of the pancreas are within normal limits. Impression: 1. Fatty infiltration within the liver with slightly generous size of the liver. 2. Sludge within the gallbladder with no gallbladder wall thickening or biliary duct dilatation. 3. No additional abnormality is appreciated on abdominal ultrasound exam. Diagnostic code #2 Study was dictated in MDT
[2020-01-12] MEDS: Hydrochlorothiazide 12.5 MG Cap PO SCH (21:34)
[2020-01-12] MEDS: Thiamine 100 MG Tab PO SCH (21:35)
[2020-01-13] MEDS: Heparin Sodium 5,000 Units/ML Vial SUBCUT SCH ×2 (00:57→08:48)
[2020-01-13 06:40] LABS: BLOOD UREA NITROGEN,BUN 9 mg/dL (7.0-18.0); CARBON DIOXIDE,CO2 27.9 mmol/L (21.0-32.0); CHLORIDE,CL 101 mmol/L (98-107); GLUCOSE RANDOM 91 mg/dL (74-106); POTASSIUM,K 3.1 mmol/L (3.5-5.1); SODIUM,NA 139 mmol/L (136-148)
[2020-01-13] MEDS: Pantoprazole 40 MG in Sodium Chloride 0.9% 10 ML IV SCH (07:37)
[2020-01-13] MEDS ORDERED: Potassium Chloride 20 MEQ Tab.ER PO ONE (08:09)
[2020-01-13] MEDS: amLODIPine 5 MG Tab PO SCH (08:46)
[2020-01-13] MEDS: Folic Acid 1 MG Tab PO SCH (08:47)
--- NOTE | 2020-01-13 10:57 | PCM.DCSUM1 ---
Discharge Summary - Hospital Course Brief History: 39-year-old male with history of hypertension, non-compliance, and anxiety presents with left sided chest discomfort 30 minutes prior to arrival, associated with shortness of breath and feeling shaky. Patient states that he has been prescribed antihypertensives but didnt want to take them. He states his recently him, and since then he started maranda drinking, he is not suicidal, but he has been drinking every day since. His last drink was 6 hours before coming to ER. He denies drug use. In the ER patient was found to be in alcohol withdrawal, and hypertensive urgency, and had elevated lipase, suggestive of pancreatitis. Received IV benzo, eventually was admitted to hospital for further management. Trop was negative, EKG didn't show ST, T wave ischemic changes. During my encounter patient was much calmer, CIWA was 3, Denied sob, palpitations, N/V, abdominal pain, hallucinations, SI/HI, states he is just upset with his wifes betrayal as she left him for another person. Patient is very concerned about his "elevated liver enzymes" was "thinking he has cirrhosis. Diagnosis: Stroke: No - Discharge Data Discharge Date: 01/13/20 Discharge Disposition: Home, Self-Care 01 Condition: Good - Referral to Home Health Primary Care Physician: Nish Garcia MD - Discharge Diagnosis/Problem(s) (1) Alcohol abuse SNOMED Code(s): 98721956 ICD Code: F10.10 - ALCOHOL ABUSE, UNCOMPLICATED Status: Acute Current Visit: Yes (2) Alcohol withdrawal SNOMED Code(s): 906979885 ICD Code: F10.239 - ALCOHOL DEPENDENCE WITH WITHDRAWAL, UNSPECIFIED Status: Acute Current Visit: Yes (3) Hypertension SNOMED Code(s): 98867701 ICD Code: I10 - ESSENTIAL (PRIMARY) HYPERTENSION Status: Acute Current Visit: Yes (4) Noncompliance with medication regimen SNOMED Code(s): 686757010 ICD Code: Z91.14 - PATIENT'S OTHER NONCOMPLIANCE WITH MEDICATION REGIMEN Status: Acute Current Visit: Yes (5) Pancreatitis SNOMED Code(s): 18300711 ICD Code: K85.90 - ACUTE PANCREATITIS WITHOUT NECROSIS OR INFECTION, UNSP Status: Acute Current Visit: Yes (6) Transaminitis SNOMED Code(s): 398739404, 650815078 ICD Code: R74.0 - NONSPEC ELEV OF LEVELS OF TRANSAMNS & LACTIC ACID DEHYDRGNSE Status: Acute Current Visit: Yes - Patient Summary/Data Hospital Course: Admitting Diagnoses: Acute alcoholic pancreatitis Transaminitis Alcohol withdrawal Discharge Diagnoses: Acute alcoholic pancreatitis Transaminitis Alcohol withdrawal Other pmh Alcohol abuse Nabil was admitted for acute alcoholic pancreatitis and alcohol withdrawal. he was noted to have some transaminitis with hyperbilirubinemia. RUQ US obtained which showed fatty infilitration with some gallbladder sludge no inflammation. No stones. He was treated with IVFs, LIbrium and Ativan. Yesterday Librium was stopped as he was improving nicely with Ativan PRN. Today he is feeling improved. CIWAAs remain controlled without Ativan. He was counseled heavily on sobriety and provided with resources to stay away from alcohol and provider support. He was noted to have elevated BP on admission, which could be contributed to withdrawal. He was treated with Amlodipine and HCTZ, with improvement. He will be prescribed these two, follow up with PCP in 1 week to monitor BP. He is to Return to ED or clinic if concerns should arise. - Patient Instructions Diet: Heart Healthy Diet Activity: As Tolerated, No Strenuous Activities Driving: Do Not Drive Showering/Bathing: May Shower Notify Provider of: Fever, Increased Pain, Swelling and Redness, Drainage, [place] and/or Vomiting Other/Special Instructions: AA meetings and [employer] to assist in sobriety - Discharge Plan *PRESCRIPTION DRUG MONITORING PROGRAM REVIEWED*: Not Applicable *COPY OF PRESCRIPTION DRUG MONITORING REPORT IN PATIENT MONICA: Not Applicable Prescriptions/Med Rec: hydroCHLOROthiazide [Hydrochlorothiazide] 12.5 mg PO BEDTIME #30 cap amLODIPine [Norvasc] 10 mg PO DAILY #60 tablet Home Medications: Home Meds LORazepam [Ativan] 1 mg PO BID PRN 01/10/20 [History] amLODIPine [Norvasc] 10 mg PO DAILY #60 tablet 01/13/20 [Rx] hydroCHLOROthiazide [Hydrochlorothiazide] 12.5 mg PO BEDTIME #30 cap 01/13/20 [Rx] Oxygen Therapy Mode: Room Air Patient Handouts: Hydrochlorothiazide, HCTZ; Lisinopril tablets, Hypertension, Adult, [id number], Amlodipine tablets, Recovering From Addiction, Alcohol Withdrawal Syndrome, [id number] Referrals: Lalita Romo, RAFAEL [Nurse Practitioner] - 01/19/20 9:45 am (Arrive 15 minutes early with phot ID, insurance card, and a mask if you have one. ) - Discharge Summary/Plan Comment DC Time >30 min.: No - Patient Data Vitals - Most Recent: Last Vital Signs Temp 98.4 F 01/13/20 07:56 Pulse 65 01/13/20 07:56 Resp 16 01/13/20 07:56 BP 138/88 01/13/20 08:46 Pulse Ox 95 01/13/20 07:56 Weight - Most Recent: 79.333 kg I&O - Last 24 hours: Intake & Output 01/12/20 01/13/20 01/13/20 22:59 06:59 14:59 Intake Total 840 800 Output Total 700 600 Balance 140 200 Lab Results - Last 24 hrs: Laboratory Results - last 24 hr 01/13/20 01/13/20 Range/Units 05:58 05:58 WBC 5.51 (4.0-11.0) K/uL RBC 4.42 L (4.50-5.90) M/uL Hgb 15.0 (13.0-17.0) g/dL Hct 44.4 (38.0-50.0) % MCV 100.5 H (80.0-98.0) fL MCH 33.9 H (27.0-32.0) pg MCHC 33.8 (31.0-37.0) g/dL RDW Std Deviation 50.9 (28.0-62.0) fl RDW Coeff of Katlyn 14 (11.0-15.0) % Plt Count 184 (150-400) K/uL MPV 9.80 (7.40-12.00) fL Neut % (Auto) 51.2 (48.0-80.0) % Lymph % (Auto) 27.4 (16.0-40.0) % Chase % (Auto) 15.6 H (0.0-15.0) % Eos % (Auto) 5.3 (0.0-7.0) % Baso % (Auto) 0.5 (0.0-1.5) % Neut # (Auto) 2.8 (1.4-5.7) K/uL Lymph # (Auto) 1.5 (0.6-2.4) K/uL Chase # (Auto) 0.9 H (0.0-0.8) K/uL Eos # (Auto) 0.3 (0.0-0.7) K/uL Baso # (Auto) 0.0 (0.0-0.1) K/uL Nucleated RBC % 0.0 /100WBC Nucleated RBCs # 0 K/uL Sodium 139 (136-148) mmol/L Potassium 3.1 L (3.5-5.1) mmol/L Chloride 101 (98-107) mmol/L Carbon Dioxide 27.9 (21.0-32.0) mmol/L BUN 9 (7.0-18.0) mg/dL Creatinine 0.9 (0.8-1.3) mg/dL Est Cr Clr Drug Dosing 116.03 mL/min Estimated GFR (MDRD) > 60.0 ml/min Glucose 91 (74-106) mg/dL Calcium 9.3 (8.5-10.1) mg/dL Magnesium 2.2 (1.8-2.4) mg/dL Total Bilirubin 0.9 (0.2-1.0) mg/dL AST 75 H (15-37) IU/L ALT 113 H (14-63) IU/L Alkaline Phosphatase 71 (46-116) U/L Total Protein 7.4 (6.4-8.2) g/dL Albumin 3.8 (3.4-5.0) g/dL Globulin 3.6 (2.6-4.0) g/dL Albumin/Globulin Ratio 1.1 (0.9-1.6) Med Orders - Current: Current Medications Albuterol/Ipratropium (Duoneb 3.0-0.5 Mg/3 Ml) 3 ml NEB Q4HRRT PRN PRN Reason: Shortness of Breath Amlodipine Besylate (Norvasc) 10 mg PO DAILY [facility] Last Admin: 01/13/20 08:46 Dose: 10 mg Documented by: Dextrose/Water (Dextrose 50% In Water) 50 ml IVPUSH ONETIME PRN PRN Reason: Hypoglycemia Folic Acid (Folic Acid) 1 mg PO DAILY [facility] Last Admin: 01/13/20 08:47 Dose: 1 mg Documented by: Heparin Sodium (Porcine) (Heparin Sodium) 5,000 units SUBCUT Q8H [facility] Last Admin: 01/13/20 08:48 Dose: 5,000 units Documented by: Hydrochlorothiazide (Hydrochlorothiazide) 12.5 mg PO BEDTIME [facility] Last Admin: 01/12/20 21:34 Dose: 12.5 mg Documented by: Pantoprazole Sodium 40 mg/ (Sodium Chloride) 10 mls @ 300 mls/hr IV ACBREAKFAST [facility] Last Admin: 01/13/20 07:37 Dose: 300 mls/hr Documented by: Ketorolac Tromethamine (Toradol) 15 mg IVPUSH Q4H PRN PRN Reason: Pain Stop: 01/16/20 00:50 Labetalol HCl (Normodyne) 20 mg IVPUSH Q4H PRN; Protocol PRN Reason: Hypertension Last Admin: 01/11/20 17:21 Dose: 20 mg Documented by: Lorazepam (Ativan) 0 mg IVPUSH Q4H PRN; Protocol PRN Reason: Withdrawal Symptoms Last Admin: 01/11/20 04:16 Dose: 1 mg Documented by: Lorazepam (Ativan) 1 - 2 mg PO Q4H PRN; Protocol PRN Reason: Withdrawal Symptoms Last Admin: 01/11/20 22:18 Dose: 1 mg Documented by: Ondansetron HCl (Zofran) 4 mg IVPUSH Q4H PRN PRN Reason: Nausea Sodium Chloride (Saline Flush) 2.5 ml FLUSH ASDIRECTED PRN PRN Reason: Keep Vein Open Thiamine HCl (Vitamin B-1) 100 mg PO BEDTIME [facility] Last Admin: 01/12/20 21:35 Dose: 100 mg Documented by: Discontinued Medications Aspirin (Aspirin) 324 mg PO ONETIME ONE Stop: 01/10/20 20:29 Last Admin: 01/10/20 20:50 Dose: 324 mg Documented by: Chlordiazepoxide HCl (Librium) 10 mg PO ONETIME ONE Stop: 01/11/20 00:11 Last Admin: 01/11/20 01:37 Dose: Not Given Documented by: Chlordiazepoxide HCl (Librium) Confirm Administered Dose 10 mg .ROUTE .STK-MED ONE Stop: 01/11/20 00:29 Last Admin: 01/11/20 00:40 Dose: 10 mg Documented by: Chlordiazepoxide HCl (Librium) 25 mg PO BID [facility] Last Admin: 01/12/20 09:24 Dose: 25 mg Documented by: Multivitamins/Minerals 10 ml/Thiamine HCl 100 mg/ Folic Acid 1 mg/ Sodium Chloride 1,011.2 mls @ 999 mls/hr IV ONETIME ONE Stop: 01/10/20 21:30 Last Admin: 01/10/20 21:29 Dose: 999 mls/hr Documented by: Metoprolol Tartrate 5 mg/ (Sodium Chloride) 55 mls @ 100 mls/hr IV ONETIME ONE Stop: 01/10/20 21:07 Last Admin: 01/10/20 21:45 Dose: Not Given Documented by: Lactated Ringer's (Ringers, Lactated) 1,000 mls @ 100 mls/hr IV ASDIRECTED [facility] Last Infusion: 01/12/20 11:26 Dose: 100 mls/hr Documented by: Magnesium Sulfate 2 gm/ Premix 50 mls @ 50 mls/hr IV ONETIME ONE Stop: 01/11/20 11:00 Last Admin: 01/11/20 10:22 Dose: 50 mls/hr Documented by: Labetalol HCl (Normodyne) 10 mg IVPUSH Q4H PRN; Protocol PRN Reason: Hypertension Last Admin: 01/11/20 12:23 Dose: 10 mg Documented by: Lorazepam (Ativan) 2 mg IVPUSH ONETIME ONE Stop: 01/10/20 20:29 Last Admin: 01/10/20 20:57 Dose: 2 mg Documented by: Metoprolol Tartrate (Lopressor) Confirm Administered Dose 5 mg .ROUTE .STK-MED ONE Stop: 01/10/20 20:43 Last Admin: 01/10/20 20:47 Dose: 5 mg Documented by: Potassium Chloride (Klor-Con M20) 40 meq PO ONETIME ONE Stop: 01/13/20 08:10 Last Admin: 01/13/20 08:47 Dose: 40 meq Documented by: - Exam General: Reports: Alert, Oriented, Cooperative, No Acute Distress Lungs: Reports: Clear to Auscultation, Normal Respiratory Effort Cardiovascular: Reports: Regular Rate, Regular Rhythm GI/Abdominal Exam: Normal Bowel Sounds, Soft, Non-Tender Back Exam: Reports: Normal Inspection, Full Range of Motion Skin: Reports: Warm, Dry, Intact Neurological: Reports: No New Focal Deficit Psy/Mental Status: Reports: Alert, Normal Affect, Normal Mood. Denies: With drawal Symptoms
--- NOTE | 2020-01-13 13:34 | ECHO ---
EXAM DATE: 01/11/20 PATIENT'S AGE: 39 The ECHO report has been scanned into [employer] and can be seen in this patient's EMR (Electronic Medical Record) under the REPORTS section. The report has also been scanned into PACS. DAVID
== END 2020-01-13 14:10 | disposition home or self-care (01) | DRG 896 ==
LOC: MW.ED 20:08 → UNDOADMIN 01-11 00:08 → MW.MS 01-11 00:08
PROVIDERS: ADMIT Student in an Organized Health Care Education/Training Program; ATTEND Student in an Organized Health Care Education/Training Program
DX: F10.239 Alcohol dependence with withdrawal, unspecified (principal); K85.20 Alcohol induced acute pancreatitis without necrosis or infection; I16.0 Hypertensive urgency; I10 Essential (primary) hypertension; F41.9 Anxiety disorder, unspecified; F17.210 Nicotine dependence, cigarettes, uncomplicated; R74.0 Nonspecific elevation of levels of transaminase and lactic acid dehydrogenase [LDH]; Z91.14 Patient's other noncompliance with medication regimen; Z79.899 Other long term (current) drug therapy; Z88.5 Allergy status to narcotic agent; Z90.49 Acquired absence of other specified parts of digestive tract
CPT/HCPCS: 36415; 71046; 71046-26; 76705; 76705-26; 80053; 80061; 80074; 80305-QW; 80307; 81001; 83036; 83690; 83735; 84100; 84439; 84443; 84484; 85025; 93005; 93306; 96365; 96375; 99284; 99285-25; A9270-GY; C9113; J1644; J2060; J3411; J3475; J3490; J7030; J7050; J7120

== ENCOUNTER 2020-02-29 22:08 | Emergency (ER) | payer OTHER ==
[2020-02-29] MEDS ORDERED: Sodium Chloride 0.9% 1,000 ML IV ONE ×2 (22:13→23:45)
[2020-02-29] MEDS ORDERED: LORazepam 2 MG/ML SDV IVPUSH ONE (22:15)
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
[2020-02-29 23:00] LABS: BLOOD UREA NITROGEN,BUN 10 mg/dL (7.0-18.0); CARBON DIOXIDE,CO2 20.9 mmol/L (21.0-32.0); CHLORIDE,CL 94 mmol/L (98-107); GLUCOSE RANDOM 121 mg/dL (74-106); POTASSIUM,K 3.2 mmol/L (3.5-5.1); SODIUM,NA 134 mmol/L (136-148)
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
[2020-02-29] MEDS ORDERED: Ondansetron 4 MG/2 ML SDV IVPUSH ONE (23:45)
[2020-02-29] MEDS ORDERED: chlordiazePOXIDE 25 MG Cap PO ONE (23:45)
[2020-03-01] MEDS ORDERED: LORazepam 2 MG/ML SDV IVPUSH ONE (00:38)
== END 2020-03-01 02:15 | disposition left against medical advice (07) ==
LOC: MW.ED 22:08
DX: R56.9 Unspecified convulsions (principal); I10 Essential (primary) hypertension; Z79.899 Other long term (current) drug therapy; Z88.5 Allergy status to narcotic agent
CPT/HCPCS: 36415; 70450; 72125; 80053; 80307; 83735; 84146; 84443; 85025; 93005; 96365; 96366; 96375; 96376; 99285; A9270; J1953; J2060; J7030; J7060

== ENCOUNTER 2020-06-12 17:11 | Emergency (ER) | payer SELFPAY ==
[2020-06-12] MEDS ORDERED: Sodium Chloride 0.9% 10 ML Syringe FLUSH PRN (17:41)
[2020-06-12] MEDS ORDERED: Sodium Chloride 0.9% 2.5 ML Syringe FLUSH PRN (17:41)
[2020-06-12] MEDS ORDERED: Ondansetron 4 MG/2 ML SDV IVPUSH ONE (17:41)
[2020-06-12] MEDS ORDERED: MVI, Adult with Vitamin K 10 ML, Thiamine 100 MG, Folic Acid 1 MG in Sodium Chloride 0.... IV ONE ×4 (17:42)
[2020-06-12] MEDS ORDERED: LORazepam 2 MG/ML SDV IVPUSH ONE ×5 (17:42→21:31)
[2020-06-12 18:14] LABS: ACETAMINOPHEN <2.0 ug/mL
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
--- NOTE | 2020-06-12 18:20 | PCM.SN.2 ---
- Free Text/Narrative Note: EKG TIme 614pm Rate 117 No JORGE
[2020-06-12 18:24] LABS: BLOOD UREA NITROGEN,BUN 7 mg/dL (7.0-18.0); CHLORIDE,CL 96 mmol/L (98-107); GLUCOSE RANDOM 113 mg/dL (74-106); LIPASE 279 U/L (73-393); POTASSIUM,K 3.3 mmol/L (3.5-5.1); SODIUM,NA 137 mmol/L (136-148)
--- NOTE | 2020-06-12 18:52 | EDM.PDOC ---
ED HPI GENERAL MEDICAL PROBLEM - General Chief Complaint: General Stated Complaint: PANICK ATTAC Time Seen by Provider: 06/12/20 17:19 Source of Information: Reports: Patient History Limitations: Reports: No Limitations - History of Present Illness INITIAL COMMENTS - FREE TEXT/NARRATIVE: HISTORY AND PHYSICAL: History of present illness: Patient is a 39-year-old male who presents to the ED today with concern of anxiety, shaking, and fast heart rate that started this afternoon. Patient states that he is unsure if this is anxiety/panic attack or if he is withdrawing from alcohol. Patient states he does drink a large amount of alcohol but is unable to quantify how much. Patient states over the last several months he has been drinking more than he has ever been because his had cheated on him. Patient states that he is embarrassed to admit that he has an alcohol problem and has been trying to decrease his drinking. Patient states his last drink was a small shot of vodka around 11-noon and a few hours later starting having increase anxiety and ultimately led to shaking and a fast heart rate prior to coming into the ED. Patient states he would typically drink more than this in a day. She denies any health history. Patient denies fever, chills, chest pain, shortness of breath, or cough. Denies headache, neck stiff ness, change in vision, syncope, or near syncope. Denies nausea, vomiting, abdominal pain, diarrhea, constipation, or dysuria. Has not noted any blood in urine or stool. Patient has been eating and drinking appropriately. Review of systems: As per history of present illness and below otherwise all systems reviewed and negative. Past medical history: As per history of present illness and as reviewed below otherwise noncontributory. Surgical history: As per history of present illness and as reviewed below otherwise noncontributory. Social history: See social history for further information Family history: As per history of present illness and as reviewed below otherwise noncontributory. Physical exam: General: Patient is alert, oriented, and in no acute distress. Patient sitting on exam table, moderately anxious and agitated appearing. Tachycardic 150s on exam otherwise vitals stable. Nursing documentation reviewed. HEENT: Atraumatic, normocephalic, pupils equal and reactive bilaterally, negative for conjunctival pallor or scleral icterus, mucous membranes moist, TMs normal bilaterally, throat clear, neck supple, nontender, trachea midline. No drooling or trismus noted. No meningeal signs. No hot potato voice noted. Lungs: Clear to auscultation, breath sounds equal bilaterally, chest nontender. Heart: S1S2, regular rate and rhythm without overt murmur Abdomen: Soft, nondistended, nontender. Negative for masses or hepatosplenomegaly. Negative for costovertebral tenderness. Pelvis: Stable nontender. Genitourinary: Deferred. Rectal: Deferred. Skin: Intact, warm, dry. No lesions or rashes noted. Extremities: Patient does have severe tremor even with arms extended with moist palms. Otherwise, Atraumatic, negative for cords or calf pain. Neurovascular unremarkable. Neuro: Awake, alert, oriented. Cranial nerves II through XII unremarkable. Cerebellum unremarkable. Motor and sensory unremarkable throughout. Exam nonfocal. Notes: CIWA 13 Upon reassessment of patient, he is clinically improved and CIWA upon discharge 1. Patient no longer tremulous and HR has improved to 100s upon discharge. Dr. Briggs verbally involved in patient care. Patient offered admission for alcohol detox but he declines at this time. All risks vs benefits discussed with patient and expresses understanding. Patient has been provided with outpatient addiction program resources and discussed importance for follow-up with an addiction program as well has his primary care provider. Voices understanding and is agreeable to plan of care. Denies any further questions or concerns at this time. Diagnostics: EKG, CBC, CMP, UA, CXR, Trop, ETOH, Acetaminophen, Tylenol, Mg, Salicylate, TSH Therapeutics: Banana bag, Ativan, NS Prescription: Librium Impression: Alcohol withdrawal Plan: 1. Take medication as prescribed. Follow up with a primary care distribution designer / addiction program as discussed. Return to the ED as needed and as discussed. Definitive disposition and diagnosis as appropriate pending reevaluation and review of above. - Related Data Allergies Allergy/AdvReac Type Severity Reaction Status Date / Time codeine Allergy Seizure Verified 06/12/20 17:20 Home Meds: Home Meds LORazepam [Ativan] 1 mg PO BID PRN 01/10/20 [History] amLODIPine [Norvasc] 10 mg PO DAILY #60 tablet 01/13/20 [Rx] hydroCHLOROthiazide [Hydrochlorothiazide] 12.5 mg PO BEDTIME #30 cap 01/13/20 [Rx] Past Medical History Cardiovascular History: Reports: Hypertension Respiratory History: Reports: None Genitourinary History: Reports: None Musculoskeletal History: Reports: None Neurological History: Reports: None Psychiatric History: Reports: Anxiety Endocrine/Metabolic History: Reports: None Hematologic History: Reports: None Immunologic History: Reports: None Oncologic (Cancer) History: Reports: None Dermatologic History: Reports: None - Infectious Disease History Infectious Disease History: Reports: None - Past Surgical History Head Surgeries/Procedures: Reports: None Other HEENT Surgeries/Procedures: LABRUM GI Surgical History: Reports: Appendectomy Social & Family History - Family History Family Medical History: No Pertinent Family History - Tobacco Use Tobacco Use Status *Q: Current Every Day Tobacco User Years of Tobacco use: 15 Packs/Tins Daily: 1 - Caffeine Use Caffeine Use: Reports: Coffee, Energy Drinks - Recreational Drug Use Recreational Drug Use: No ED ROS GENERAL - Review of Systems Review Of Systems: Comprehensive ROS is negative, except as noted in HPI. ED EXAM, GENERAL - Physical Exam Exam: See Below (see dictation) Course - Vital Signs Last Recorded V/S: Last Vital Signs Temp 98.2 F 06/12/20 17:20 Pulse 101 H 06/12/20 22:16 Resp 16 06/12/20 22:16 BP 123/79 06/12/20 22:16 Pulse Ox 99 06/12/20 22:16 - Orders/Labs/Meds Orders: Active Orders 24 hr Category Date Time Status EKG Documentation Completion [RC] STAT Care 06/12/20 17:41 Active Ang Chest [CT] Stat Exams 06/12/20 21:28 Stop Req Sodium Chloride 0.9% [Normal Saline] 1,000 ml Med 06/12/20 21:30 Active IV STAT Sodium Chloride 0.9% [Saline Flush] Med 06/12/20 17:41 Active 10 ml FLUSH ASDIRECTED PRN Sodium Chloride 0.9% [Saline Flush] Med 06/12/20 17:41 Active 2.5 ml FLUSH ASDIRECTED PRN Saline Lock Insert [OM.PC] Stat Oth 06/12/20 17:41 Ordered Medication Orders Sodium Chloride (Normal Saline) 1,000 mls @ 125 mls/hr IV STAT MAGGI Last Admin: 06/12/20 21:40 Dose: 125 mls/hr Documented by: ANA Sodium Chloride (Saline Flush) 10 ml FLUSH ASDIRECTED PRN PRN Reason: Keep Vein Open Last Admin: 06/12/20 18:01 Dose: 10 ml Documented by: JEWEL Sodium Chloride (Saline Flush) 2.5 ml FLUSH ASDIRECTED PRN PRN Reason: Keep Vein Open Last Admin: 06/12/20 18:01 Dose: 2.5 ml Documented by: JEWEL Labs: Laboratory Tests 06/12/20 06/12/20 06/12/20 Range/Units 17:44 17:44 17:47 WBC 9.65 (4.0-11.0) K/uL RBC 4.74 (4.50-5.90) M/uL Hgb 16.7 (13.0-17.0) g/dL Hct 46.5 (38.0-50.0) % MCV 98.1 H (80.0-98.0) fL MCH 35.2 H (27.0-32.0) pg MCHC 35.9 (31.0-37.0) g/dL RDW Std Deviation 46.4 (28.0-62.0) fl RDW Coeff of Katlyn 13 (11.0-15.0) % Plt Count 287 (150-400) K/uL MPV 9.50 (7.40-12.00) fL Neut % (Auto) 77.8 (48.0-80.0) % Lymph % (Auto) 12.3 L (16.0-40.0) % Citrus % (Auto) 9.4 (0.0-15.0) % Eos % (Auto) 0.2 (0.0-7.0) % Baso % (Auto) 0.3 (0.0-1.5) % Neut # (Auto) 7.5 H (1.4-5.7) K/uL Lymph # (Auto) 1.2 (0.6-2.4) K/uL Citrus # (Auto) 0.9 H (0.0-0.8) K/uL Eos # (Auto) 0.0 (0.0-0.7) K/uL Baso # (Auto) 0.0 (0.0-0.1) K/uL Nucleated RBC % 0.0 /100WBC Nucleated RBCs # 0 K/uL Sodium 137 (136-148) mmol/L Potassium 3.3 L (3.5-5.1) mmol/L Chloride 96 L (98-107) mmol/L Carbon Dioxide 20.0 L (21.0-32.0) mmol/L BUN 7 (7.0-18.0) mg/dL Creatinine 1.0 (0.8-1.3) mg/dL Est Cr Clr Drug Dosing 104.43 mL/min Estimated GFR (MDRD) > 60.0 ml/min Glucose 113 H (74-106) mg/dL POC Glucose 118 H (60-110) mg/dL Calcium 10.5 H (8.5-10.1) mg/dL Magnesium 1.7 L (1.8-2.4) mg/dL Total Bilirubin 1.4 H (0.2-1.0) mg/dL AST 92 H (15-37) IU/L ALT 113 H (14-63) IU/L Alkaline Phosphatase 85 (46-116) U/L Troponin I < 0.050 (0.000-0.056) ng/mL Total Protein 8.8 H (6.4-8.2) g/dL Albumin 4.7 (3.4-5.0) g/dL Globulin 4.1 H (2.6-4.0) g/dL Albumin/Globulin Ratio 1.2 (0.9-1.6) Lipase 279 (73-393) U/L TSH 3rd Generation 1.59 (0.36-3.74) uIU/mL Urine Color Urine Appearance Urine pH (5.0-8.0) Ur Specific Roper (1.001-1.035) Urine Protein (NEGATIVE) mg/dL Urine Glucose (UA) (NEGATIVE) mg/dL Urine Ketones (NEGATIVE) mg/dL Urine Occult Blood (NEGATIVE) Urine Nitrite (NEGATIVE) Urine Bilirubin (NEGATIVE) Urine Urobilinogen (<2.0) EU/dL Ur Leukocyte Esterase (NEGATIVE) U Hyaline Cast (Auto) (0-2/LPF) Urine RBC (0-2/HPF) Urine WBC (0-5/HPF) Ur Epithelial Cells (NONE-FEW) Amorphous Sediment (NEGATIVE) Urine Bacteria (NEGATIVE) Urine Mucus (NONE-MOD) Salicylates 5.8 (0-20) mg/dL Urine Opiates Screen (NEGATIVE) Ur Oxycodone Screen (NEGATIVE) Urine Methadone Screen (NEGATIVE) Acetaminophen <2.0 ug/mL Ur Barbiturates Screen (NEGATIVE) Ur Phencyclidine Scrn (NEGATIVE) Ur Amphetamine Screen (NEGATIVE) U Methamphetamines Scrn (NEGATIVE) U Benzodiazepines Scrn (NEGATIVE) U Cocaine Metab Screen (NEGATIVE) U Marijuana (THC) Screen (NEGATIVE) Ethyl Alcohol 72 mg/dL 06/12/20 06/12/20 Range/Units 17:55 19:39 WBC (4.0-11.0) K/uL RBC (4.50-5.90) M/uL Hgb (13.0-17.0) g/dL Hct (38.0-50.0) % MCV (80.0-98.0) fL MCH (27.0-32.0) pg MCHC (31.0-37.0) g/dL RDW Std Deviation (28.0-62.0) fl RDW Coeff of Katlyn (11.0-15.0) % Plt Count (150-400) K/uL MPV (7.40-12.00) fL Neut % (Auto) (48.0-80.0) % Lymph % (Auto) (16.0-40.0) % Citrus % (Auto) (0.0-15.0) % Eos % (Auto) (0.0-7.0) % Baso % (Auto) (0.0-1.5) % Neut # (Auto) (1.4-5.7) K/uL Lymph # (Auto) (0.6-2.4) K/uL Citrus # (Auto) (0.0-0.8) K/uL Eos # (Auto) (0.0-0.7) K/uL Baso # (Auto) (0.0-0.1) K/uL Nucleated RBC % /100WBC Nucleated RBCs # K/uL Sodium (136-148) mmol/L Potassium (3.5-5.1) mmol/L Chloride (98-107) mmol/L Carbon Dioxide (21.0-32.0) mmol/L BUN (7.0-18.0) mg/dL Creatinine (0.8-1.3) mg/dL Est Cr Clr Drug Dosing mL/min Estimated GFR (MDRD) ml/min Glucose (74-106) mg/dL POC Glucose (60-110) mg/dL Calcium (8.5-10.1) mg/dL Magnesium (1.8-2.4) mg/dL Total Bilirubin (0.2-1.0) mg/dL AST (15-37) IU/L ALT (14-63) IU/L Alkaline Phosphatase (46-116) U/L Troponin I (0.000-0.056) ng/mL Total Protein (6.4-8.2) g/dL Albumin (3.4-5.0) g/dL Globulin (2.6-4.0) g/dL Albumin/Globulin Ratio (0.9-1.6) Lipase (73-393) U/L TSH 3rd Generation (0.36-3.74) uIU/mL Urine Color YELLOW Urine Appearance CLEAR Urine pH 7.0 (5.0-8.0) Ur Specific Roper 1.020 (1.001-1.035) Urine Protein 30 H (NEGATIVE) mg/dL Urine Glucose (UA) NEGATIVE (NEGATIVE) mg/dL Urine Ketones >=80 (NEGATIVE) mg/dL Urine Occult Blood NEGATIVE (NEGATIVE) Urine Nitrite NEGATIVE (NEGATIVE) Urine Bilirubin NEGATIVE (NEGATIVE) Urine Urobilinogen 0.2 (<2.0) EU/dL Ur Leukocyte Esterase NEGATIVE (NEGATIVE) U Hyaline Cast (Auto) 1-3 (0-2/LPF) Urine RBC 0-1 (0-2/HPF) Urine WBC 0-1 (0-5/HPF) Ur Epithelial Cells RARE (NONE-FEW) Amorphous Sediment LIGHT (NEGATIVE) Urine Bacteria RARE (NEGATIVE) Urine Mucus LIGHT (NONE-MOD) Salicylates (0-20) mg/dL Urine Opiates Screen NEGATIVE (NEGATIVE) Ur Oxycodone Screen NEGATIVE (NEGATIVE) Urine Methadone Screen NEGATIVE (NEGATIVE) Acetaminophen ug/mL Ur Barbiturates Screen NEGATIVE (NEGATIVE) Ur Phencyclidine Scrn NEGATIVE (NEGATIVE) Ur Amphetamine Screen NEGATIVE (NEGATIVE) U Methamphetamines Scrn NEGATIVE (NEGATIVE) U Benzodiazepines Scrn NEGATIVE (NEGATIVE) U Cocaine Metab Screen NEGATIVE (NEGATIVE) U Marijuana (THC) Screen NEGATIVE (NEGATIVE) Ethyl Alcohol mg/dL Meds: Medications Generic Name Dose Route Start Last Admin Trade Name Freq PRN Reason Stop Dose Admin Sodium Chloride 1,000 mls @ 125 mls/hr 06/12/20 21:30 06/12/20 21:40 Normal Saline IV 125 mls/hr STAT MAGGI Administration Sodium Chloride 10 ml 06/12/20 17:41 06/12/20 18:01 Saline Flush FLUSH 10 ml ASDIRECTED PRN Administration Keep Vein Open Sodium Chloride 2.5 ml 06/12/20 17:41 06/12/20 18:01 Saline Flush FLUSH 2.5 ml ASDIRECTED PRN Administration Keep Vein Open Discontinued Medications Generic Name Dose Route Start Last Admin Trade Name Freq PRN Reason Stop Dose Admin Multivitamins/Minerals 10 ml/ 1,011.2 mls @ 999 mls/hr 06/12/20 17:42 06/12/20 18:35 Thiamine HCl 100 mg/ Folic IV 06/12/20 18:42 999 mls/hr Acid 1 mg/ Sodium Chloride ONETIME ONE Administration Lorazepam 1 mg 06/12/20 17:42 06/12/20 17:58 Ativan IVPUSH 06/12/20 17:43 1 mg ONETIME ONE Administration Lorazepam 1 mg 06/12/20 18:29 06/12/20 18:37 Ativan IVPUSH 06/12/20 18:30 1 mg ONETIME ONE Administration Lorazepam 1 mg 06/12/20 20:10 06/12/20 20:56 Ativan IVPUSH 06/12/20 20:11 1 mg ONETIME ONE Administration Lorazepam 1 mg 06/12/20 20:32 06/12/20 21:38 Ativan IVPUSH 06/12/20 20:33 Not Given ONETIME ONE Lorazepam 2 mg 06/12/20 21:31 06/12/20 21:41 Ativan IVPUSH 06/12/20 21:32 2 mg ONETIME ONE Administration Ondansetron HCl 4 mg 06/12/20 17:41 06/12/20 17:56 Zofran IVPUSH 06/12/20 17:42 4 mg ONETIME ONE Administration Departure - Departure Time of Disposition: 22:19 Disposition: Home, Self-Care 01 Clinical Impression: Alcohol withdrawal Qualifiers: Complication of substance-induced condition: with unspecified complication Qualified Code(s): F10.239 - Alcohol dependence with withdrawal, unspecified - Discharge Information Referrals: PCP,Not In Area [Primary Care Provider] - Forms: ED Department Discharge Additional Instructions: The following information is given to patients seen in the emergency department who are being discharged to home. This information is to outline your options for follow-up care. We provide all patients seen in our emergency department with a follow-up referral. The need for follow-up, as well as the timing and circumstances, are variable depending upon the specifics of your emergency department visit. If you don't have a primary care physician on staff, we will provide you with a referral. We always advise you to contact your personal physician following an emergency department visit to inform them of the circumstance of the visit and for follow-up with them and/or the need for any referrals to a consulting specialist. The emergency department will also refer you to a specialist when appropriate. This referral assures that you have the opportunity for follow-up care with a specialist. All of these measure are taken in an effort to provide you with optimal care, which includes your follow-up. Under all circumstances we always encourage you to contact your private physician who remains a resource for coordinating your care. When calling for follow-up care, please make the office aware that this follow-up is from your recent emergency room visit. If for any reason you are refused follow-up, please contact the [facility] Emergency Department at and asked to speak to the emergency department charge nurse. [facility] [address] [place] [id number] [facility] [address] [place] [address] [facility] [address] [facility] [place] [facility] [address] [facility] [place] [facility] [address] [place] [address] [facility] Hospital[facility] Program [address] [place] [address] [place] [address] [facility], [address] [address] 1. Take medication as prescribed. Follow up with a primary care distribution designer / addiction program as discussed. Return to the ED as needed and as discussed. Sepsis Event Note (ED) - Evaluation Sepsis Screening Result: No Definite Risk - Focused Exam Vital Signs: Vital Signs Temp Pulse Resp BP Pulse Ox 06/12/20 22:16 101 H 16 123/79 99 06/12/20 21:35 119 H 16 128/93 H 99 06/12/20 19:39 122 H 19 108/55 L 95 06/12/20 17:20 98.2 F 151 H 28 H 180/119 H 97 - My Orders Last 24 Hours: My Active Orders 06/12/20 17:41 EKG Documentation Completion [RC] STAT Sodium Chloride 0.9% [Saline Flush] 10 ml FLUSH ASDIRECTED PRN Sodium Chloride 0.9% [Saline Flush] 2.5 ml FLUSH ASDIRECTED PRN Saline Lock Insert [OM.PC] Stat 06/12/20 21:28 Ang Chest [CT] Stat 06/12/20 21:30 Sodium Chloride 0.9% [Normal Saline] 1,000 ml IV STAT - Assessment/Plan Last 24 Hours: My Active Orders 06/12/20 17:41 EKG Documentation Completion [RC] STAT Sodium Chloride 0.9% [Saline Flush] 10 ml FLUSH ASDIRECTED PRN Sodium Chloride 0.9% [Saline Flush] 2.5 ml FLUSH ASDIRECTED PRN Saline Lock Insert [OM.PC] Stat 06/12/20 21:28 Ang Chest [CT] Stat 06/12/20 21:30 Sodium Chloride 0.9% [Normal Saline] 1,000 ml IV STAT
[2020-06-12] MEDS ORDERED: Sodium Chloride 0.9% 1,000 ML IV SCH (21:30)
== END 2020-06-12 22:45 | disposition home or self-care (01) ==
LOC: MW.ED 17:11
DX: F10.239 Alcohol dependence with withdrawal, unspecified (principal); Y90.3 Blood alcohol level of 60-79 mg/100 ml; I10 Essential (primary) hypertension; F17.210 Nicotine dependence, cigarettes, uncomplicated; Z79.899 Other long term (current) drug therapy
CPT/HCPCS: 36415; 71045; 80053; 80305; 80307; 81001; 82962; 83690; 83735; 84443; 84484; 85025; 93005; 96365; 96366; 96375; 96376; 99285; J2060; J2405; J3411; J7030; 93010

== ENCOUNTER 2022-02-09 11:43 | Emergency (ER) | payer SELFPAY ==
[2022-02-09 14:17] LABS: ACETAMINOPHEN <2.0 ug/mL; BLOOD UREA NITROGEN,BUN 6 mg/dL (7.0-18.0); CARBON DIOXIDE,CO2 23.5 mmol/L (21.0-32.0); CHLORIDE,CL 101 mmol/L (98-107); ESTIMATED GFR 115 mL/min (>60); GLUCOSE RANDOM 126 mg/dL (74-106); POTASSIUM,K 3.8 mmol/L (3.5-5.1); SODIUM,NA 138 mmol/L (136-148)
== END 2022-02-09 15:33 ==
LOC: MW.ED 11:43
DX: F10.129 Alcohol abuse with intoxication, unspecified (principal); I10 Essential (primary) hypertension; Z88.5 Allergy status to narcotic agent; Z88.8 Allergy status to other drugs, medicaments and biological substances; Z20.822 Contact with and (suspected) exposure to COVID-19; Y90.7 Blood alcohol level of 200-239 mg/100 ml
CPT/HCPCS: 36415; 80053; 80143; 80179; 80305-QW; 80307; 81003; 83735; 84443; 85025; 99283; 99285; U0002

== ENCOUNTER 2024-04-01 16:54 | Emergency (ER) | payer SELFPAY ==
[2024-04-01] MEDS ORDERED: Sodium Chloride 0.9% 2.5 ML Syringe FLUSH PRN (17:17)
[2024-04-01] MEDS ORDERED: Sodium Chloride 0.9% 10 ML Syringe FLUSH PRN (17:17)
[2024-04-01 17:24] LABS: BASOPHILS ABSOLUTE AUTO 0.02 K/uL (0.00-0.20); BASOPHILS PERCENT AUTO 0.4 % (0.0-1.0); EOSINOPHILS ABSOLUTE AUTO 0.08 K/uL (0.00-0.45); EOSINOPHILS PERCENT AUTO 1.5 % (0.0-6.0); HEMATOCRIT 37.7 % (42.0-52.0); HEMOGLOBIN 13.5 g/dL (14.0-18.0); IMMATURE GRAN ABSOLUTE AUTO 0.02 K/uL (0.00-0.05); IMMATURE GRAN PERCENT AUTO 0.4 % (0.0-0.4); LYMPHOCYTES ABSOLUTE AUTO 1.23 K/uL (1.00-4.80); LYMPHOCYTES PERCENT AUTO 22.5 % (24.0-44.0); MEAN CORPUSCULAR HEMOGLOBIN 35.7 pg (28.0-32.0); MEAN CORPUSCULAR HGB CONC 35.8 g/dL (32.0-36.0); MEAN CORPUSCULAR VOLUME 99.7 fL (83.0-99.0); MEAN PLATELET VOLUME 9.8 fL (9.4-12.4); MONOCYTES ABSOLUTE AUTO 0.78 K/uL (0.00-0.80); MONOCYTES PERCENT AUTO 14.3 % (0.0-8.0); NEUTROPHILS ABSOLUTE AUTO 3.33 K/uL (1.80-7.70); NEUTROPHILS PERCENT AUTO 60.9 % (41.0-71.0); PLATELET COUNT,PLT 173 K/uL (150-400); RED BLOOD CELL COUNT 3.78 M/uL (4.52-5.90); WHITE BLOOD CELL COUNT,WBC 5.46 K/uL (3.9-11.3)
[2024-04-01] MEDS: LORazepam 2 MG/ML SDV IVPUSH ONE (17:32)
[2024-04-01] MEDS: Sodium Chloride 0.9% 1,000 ML IV ONE (17:37)
[2024-04-01 17:38] LABS: A/G RATIO 1.1 (0.9-1.6); ALANINE AMINOTRANSFERASE,ALT 70 IU/L (14-63); ALBUMIN 3.8 g/dL (3.4-5.0); ALKALINE PHOSPHATASE 97 U/L (46-116); ASPARTATE AMNIOTRANSFERASE,AST 55 IU/L (15-37); BILIRUBIN TOTAL 1.4 mg/dL (0.2-1.0); BLOOD UREA NITROGEN,BUN 10 mg/dL (7.0-18.0); CALCIUM 9.8 mg/dL (8.5-10.1); CARBON DIOXIDE,CO2 23.5 mmol/L (21.0-32.0); CHLORIDE,CL 102 mmol/L (98-107); CREATININE 1.1 mg/dL (0.8-1.3); EST CRCL DRUG DOSING (CG) 91.25 mL/min; GLUCOSE RANDOM 128 mg/dL (74-106); LIPASE 60 U/L (16-77); MAGNESIUM 1.4 mg/dL (1.8-2.4); POTASSIUM,K 3.2 mmol/L (3.5-5.1); PROTEIN TOTAL,TP 7.2 g/dL (6.4-8.2); SODIUM,NA 139 mmol/L (136-148)
[2024-04-01 17:44] LABS: ESTIMATED GFR 86 mL/min (>60); ETHANOL BLOOD MEDICAL < 3.0 mg/dL
[2024-04-01 18:18] LABS: BILIRUBIN,URINE NEGATIVE (NEGATIVE); COLOR,URINE YELLOW; GLUCOSE,URINE NEGATIVE (NEGATIVE); KETONES,URINE NEGATIVE (NEGATIVE); LEUKOCYTE ESTERASE,URINE NEGATIVE (NEGATIVE); NITRITE,URINE NEGATIVE (NEGATIVE); OCCULT BLOOD,URINE SMALL (NEGATIVE); PROTEIN,URINE 30 mg/dL (NEGATIVE)
[2024-04-01 18:24] LABS: APPEARANCE,URINE SLT CLOUDY
[2024-04-01 18:26] LABS: BACTERIA,URINE FEW (NEGATIVE); EPITHELIAL CELLS,URINE RARE (NONE-FEW); MUCUS,URINE FEW (NONE-MOD)
[2024-04-01 18:27] LABS: AMPHETAMINES SCREEN, URINE NEGATIVE (CUTOFF=500); BARBITURATE SCREEN,URINE NEGATIVE (CUTOFF=200); BENZODIAZEPINES SCREEN,URINE NEGATIVE (CUTOFF=150); BUPRENORPHINE SCREEN,URINE NEGATIVE (CUTOFF=10); METHADONE SCREEN, URINE NEGATIVE (CUTOFF=200); METHAMPHETAMINES SCREEN, URINE NEGATIVE (CUTOFF=500); OXYCODONE SCREEN,URINE NEGATIVE (CUT0FF=100); PCP SCREEN,URINE NEGATIVE (CUTOFF=25); THC SCREEN,URINE 20 NG/ML NEGATIVE (CUTOFF=50)
[2024-04-01] MEDS: PHENobarbitaL sodium 130 MG in Sodium Chloride 0.9% 100 ML IV ONE (18:38)
[2024-04-01] MEDS: Thiamine 100 MG in Sodium Chloride 0.9% 100 ML IV ONE (19:08)
[2024-04-01] MEDS: Potassium Chloride 20 MEQ Tab.ER PO ONE (19:09)
[2024-04-01] MEDS: Thiamine 200 MG/2 ML MDV IVPUSH ONE (19:11)
== END 2024-04-01 19:15 | disposition left against medical advice (07) ==
LOC: MW.ED 16:54
DX: R56.9 Unspecified convulsions (principal); F10.239 Alcohol dependence with withdrawal, unspecified; E83.42 Hypomagnesemia; E87.6 Hypokalemia; I10 Essential (primary) hypertension; Z88.8 Allergy status to other drugs, medicaments and biological substances; Z75.8 Other problems related to medical facilities and other health care; Z90.49 Acquired absence of other specified parts of digestive tract
CPT/HCPCS: 36415; 70450; 72125; 80053; 80305; 80307; 81001; 82947; 83690; 83735; 85025; 93005; 96365; 96375; 99285; A9270; J2060; J2560; J3411; J3490; J7030; 93010; 99284

== ENCOUNTER 2024-04-15 19:58 | Emergency (ER) | payer SELFPAY ==
[2024-04-15] MEDS: Acetaminophen 500 MG Tab PO ONE (20:19)
[2024-04-15 20:20] LABS: BASOPHILS ABSOLUTE AUTO 0.04 K/uL (0.00-0.20); BASOPHILS PERCENT AUTO 0.8 % (0.0-1.0); EOSINOPHILS ABSOLUTE AUTO 0.16 K/uL (0.00-0.45); EOSINOPHILS PERCENT AUTO 3.1 % (0.0-6.0); HEMATOCRIT 40.3 % (42.0-52.0); HEMOGLOBIN 14.3 g/dL (14.0-18.0); IMMATURE GRAN ABSOLUTE AUTO 0.01 K/uL (0.00-0.05); IMMATURE GRAN PERCENT AUTO 0.2 % (0.0-0.4); LYMPHOCYTES ABSOLUTE AUTO 0.94 K/uL (1.00-4.80); LYMPHOCYTES PERCENT AUTO 18.4 % (24.0-44.0); MEAN CORPUSCULAR HEMOGLOBIN 35.6 pg (28.0-32.0); MEAN CORPUSCULAR HGB CONC 35.5 g/dL (32.0-36.0); MEAN CORPUSCULAR VOLUME 100.2 fL (83.0-99.0); MEAN PLATELET VOLUME 9.9 fL (9.4-12.4); MONOCYTES ABSOLUTE AUTO 0.55 K/uL (0.00-0.80); MONOCYTES PERCENT AUTO 10.7 % (0.0-8.0); NEUTROPHILS ABSOLUTE AUTO 3.42 K/uL (1.80-7.70); NEUTROPHILS PERCENT AUTO 66.8 % (41.0-71.0); PLATELET COUNT,PLT 147 K/uL (150-400); RED BLOOD CELL COUNT 4.02 M/uL (4.52-5.90); WHITE BLOOD CELL COUNT,WBC 5.12 K/uL (3.9-11.3)
[2024-04-15] MEDS: Bacitracin Oint 1 GM U/D Packet TOP ONE (20:20)
[2024-04-15] MEDS: Diphtheria,Pertussis(Acell),Tetanus Vaccine 0.5 ML Syringe IM ONE (20:20)
[2024-04-15 20:45] LABS: A/G RATIO 1.2 (0.9-1.6); ACETAMINOPHEN <2.0 ug/mL; ALANINE AMINOTRANSFERASE,ALT 53 IU/L (14-63); ALKALINE PHOSPHATASE 88 U/L (46-116); ASPARTATE AMNIOTRANSFERASE,AST 57 IU/L (15-37); BILIRUBIN TOTAL 2.3 mg/dL (0.2-1.0); BLOOD UREA NITROGEN,BUN 10 mg/dL (7.0-18.0); CARBON DIOXIDE,CO2 24.7 mmol/L (21.0-32.0); CHLORIDE,CL 98 mmol/L (98-107); CREATININE 1.1 mg/dL (0.8-1.3); EST CRCL DRUG DOSING (CG) 88.75 mL/min; ETHANOL BLOOD MEDICAL <3 mg/dL; GLUCOSE RANDOM 171 mg/dL (74-106); MAGNESIUM 1.4 mg/dL (1.8-2.4); POTASSIUM,K 3.2 mmol/L (3.5-5.1); PROTEIN TOTAL,TP 7.4 g/dL (6.4-8.2); SALICYLATE 0.8 mg/dL (0.0-20.0); SODIUM,NA 135 mmol/L (136-148)
[2024-04-15 20:47] LABS: ESTIMATED GFR 86 mL/min (>60)
[2024-04-15] MEDS: Multivitamin Tab PO ONE (20:53)
[2024-04-15] MEDS: Thiamine 100 MG Tab PO ONE (20:53)
[2024-04-15] MEDS: Folic Acid 1 MG Tab PO ONE (20:53)
[2024-04-15] MEDS: Sodium Chloride 0.9% 1,000 ML IV ONE (21:32)
[2024-04-15] MEDS: Sodium Chloride 0.9% 10 ML Syringe FLUSH PRN (21:33)
== END 2024-04-15 22:39 | disposition left against medical advice (07) ==
LOC: MW.ED 19:58
DX: S02.32XA Fracture of orbital floor, left side, initial encounter for closed fracture (principal); S01.112A Laceration without foreign body of left eyelid and periocular area, initial encounter; G40.909 Epilepsy, unspecified, not intractable, without status epilepticus; I10 Essential (primary) hypertension; E83.42 Hypomagnesemia; F10.10 Alcohol abuse, uncomplicated; F19.10 Other psychoactive substance abuse, uncomplicated; Z79.899 Other long term (current) drug therapy; Z88.5 Allergy status to narcotic agent; Z88.8 Allergy status to other drugs, medicaments and biological substances; Z75.8 Other problems related to medical facilities and other health care; X58.XXXA Exposure to other specified factors, initial encounter
CPT/HCPCS: 36415; 70450; 70486; 80053; 80143; 80179; 80307; 83605; 83735; 85025; 90471; 90715; 96360; 99285; A9270; J3490; J7030; 93010; 99284

== ENCOUNTER 2024-05-15 11:48 | Emergency (ER) | payer OTHER ==
[2024-05-15] MEDS: Sodium Chloride 0.9% 1,000 ML IV ONE (12:08)
[2024-05-15] MEDS: LORazepam 2 MG/ML SDV IVPUSH ONE (12:10)
[2024-05-15 12:18] LABS: BASOPHILS ABSOLUTE AUTO 0.05 K/uL (0.00-0.20); EOSINOPHILS ABSOLUTE AUTO 0.06 K/uL (0.00-0.45); EOSINOPHILS PERCENT AUTO 1.2 % (0.0-6.0); HEMATOCRIT 43.8 % (42.0-52.0); HEMOGLOBIN 15.9 g/dL (14.0-18.0); IMMATURE GRAN ABSOLUTE AUTO 0.01 K/uL (0.00-0.05); IMMATURE GRAN PERCENT AUTO 0.2 % (0.0-0.4); MEAN CORPUSCULAR HEMOGLOBIN 35.2 pg (28.0-32.0); MEAN CORPUSCULAR HGB CONC 36.3 g/dL (32.0-36.0); MEAN CORPUSCULAR VOLUME 96.9 fL (83.0-99.0); MEAN PLATELET VOLUME 9.1 fL (9.4-12.4); MONOCYTES ABSOLUTE AUTO 0.42 K/uL (0.00-0.80); MONOCYTES PERCENT AUTO 8.6 % (0.0-8.0); NEUTROPHILS ABSOLUTE AUTO 2.52 K/uL (1.80-7.70); PLATELET COUNT,PLT 190 K/uL (150-400); RED BLOOD CELL COUNT 4.52 M/uL (4.52-5.90); WHITE BLOOD CELL COUNT,WBC 4.86 K/uL (3.9-11.3)
[2024-05-15 12:31] LABS: INR 0.97 (0.86-1.11)
[2024-05-15] MEDS: Nicotine 21 MG/24 Hr Patch TRDERM ONE (12:32)
[2024-05-15] MEDS: LORazepam 1 MG Tab PO ONE (12:33)
[2024-05-15 12:53] LABS: A/G RATIO 1.1 (0.9-1.6); ALANINE AMINOTRANSFERASE,ALT 37 IU/L (14-63); ALBUMIN 3.9 g/dL (3.4-5.0); ALKALINE PHOSPHATASE 115 U/L (46-116); ASPARTATE AMNIOTRANSFERASE,AST 45 IU/L (15-37); BILIRUBIN TOTAL 0.6 mg/dL (0.2-1.0); BLOOD UREA NITROGEN,BUN 7 mg/dL (7.0-18.0); CALCIUM 8.9 mg/dL (8.5-10.1); CARBON DIOXIDE,CO2 25.6 mmol/L (21.0-32.0); CHLORIDE,CL 107 mmol/L (98-107); CREATININE 0.9 mg/dL (0.8-1.3); GLUCOSE RANDOM 109 mg/dL (74-106); POTASSIUM,K 4.1 mmol/L (3.5-5.1); PROTEIN TOTAL,TP 7.6 g/dL (6.4-8.2); SODIUM,NA 146 mmol/L (136-148)
[2024-05-15 12:56] LABS: ESTIMATED GFR 110 mL/min (>60)
[2024-05-15] MEDS: Iopamidol 755 MG/ML 500 ML Multipack Bottle IVPUSH STA (14:11)
[2024-05-15] MEDS: hydrOXYzine HCl 25 MG Tab PO ONE (15:10)
[2024-05-15] MEDS: amLODIPine 5 MG Tab PO ONE (15:42)
== END 2024-05-15 15:50 | disposition home or self-care (01) ==
LOC: MW.ED 11:48
DX: S22.31XA Fracture of one rib, right side, initial encounter for closed fracture (principal); S09.90XA Unspecified injury of head, initial encounter; S00.81XA Abrasion of other part of head, initial encounter; F10.120 Alcohol abuse with intoxication, uncomplicated; I10 Essential (primary) hypertension; Z90.49 Acquired absence of other specified parts of digestive tract; Z79.899 Other long term (current) drug therapy; Z88.5 Allergy status to narcotic agent; Z88.8 Allergy status to other drugs, medicaments and biological substances; Y90.8 Blood alcohol level of 240 mg/100 ml or more; V49.40XA Driver injured in collision with unspecified motor vehicles in traffic accident, initial encounter; Y92.410 Unspecified street and highway as the place of occurrence of the external cause
CPT/HCPCS: 36415; 70450; 71260; 72125; 73562; 74177; 80053; 80307; 85025; 85610; 93005; 96374; 99285; A9270; J2060; J7030; Q9967; 72128-26; 72131-26; 93010; 99284

== ENCOUNTER 2024-05-15 19:15 | Emergency (ER) | payer SELFPAY | END 2024-05-15 19:35 | disposition left against medical advice (07) | LOC: MW.ED 19:15 | DX: Z53.21 Procedure and treatment not carried out due to patient leaving prior to being seen by health care provider (principal) ==

== ENCOUNTER 2024-05-16 12:25 | Emergency (ER) | payer SELFPAY ==
[2024-05-16] MEDS: amLODIPine 2.5 MG Tab PO STA (13:34)
[2024-05-16] MEDS: Losartan 50 MG Tab PO ONE (13:35)
== END 2024-05-16 14:02 | disposition home or self-care (01) ==
LOC: MW.ED 12:25
DX: Z76.0 Encounter for issue of repeat prescription (principal); I10 Essential (primary) hypertension; Z90.49 Acquired absence of other specified parts of digestive tract; F17.210 Nicotine dependence, cigarettes, uncomplicated; Z79.899 Other long term (current) drug therapy; Z88.5 Allergy status to narcotic agent; Z88.8 Allergy status to other drugs, medicaments and biological substances; Z75.8 Other problems related to medical facilities and other health care
CPT/HCPCS: 99284; A9270; 99283

== ENCOUNTER 2024-05-19 14:54 | Emergency (ER) | payer SELFPAY | END 2024-05-19 18:43 | disposition home or self-care (01) | LOC: MW.ED 14:54 | DX: F10.120 Alcohol abuse with intoxication, uncomplicated (principal); I10 Essential (primary) hypertension; Z79.899 Other long term (current) drug therapy; Z88.5 Allergy status to narcotic agent; Z88.8 Allergy status to other drugs, medicaments and biological substances; Z90.49 Acquired absence of other specified parts of digestive tract; Z75.8 Other problems related to medical facilities and other health care | CPT/HCPCS: 99283; 99284 ==

== ENCOUNTER 2024-06-05 12:49 | Emergency (ER) | payer SELFPAY | END 2024-06-05 13:08 | disposition left against medical advice (07) | LOC: MW.ED 12:49 | DX: S00.83XA Contusion of other part of head, initial encounter (principal); S00.81XA Abrasion of other part of head, initial encounter; S09.90XA Unspecified injury of head, initial encounter; F10.920 Alcohol use, unspecified with intoxication, uncomplicated; I10 Essential (primary) hypertension; F17.210 Nicotine dependence, cigarettes, uncomplicated; Z88.8 Allergy status to other drugs, medicaments and biological substances; Z90.49 Acquired absence of other specified parts of digestive tract; W19.XXXA Unspecified fall, initial encounter | CPT/HCPCS: 99282; 99284 ==

== ENCOUNTER 2024-06-11 00:25 | Emergency (ER) | payer SELFPAY ==
[2024-06-11] MEDS ORDERED: Ketorolac 30 MG/ML SDV IM ONE (00:43)
[2024-06-11] MEDS: Acetaminophen 500 MG Tab PO ONE (01:10)
[2024-06-11] MEDS: Ketorolac 30 MG/ML SDV IM ONE (01:11)
== END 2024-06-11 02:18 | disposition home or self-care (01) ==
LOC: MW.ED 00:25
DX: G89.18 Other acute postprocedural pain (principal); M54.6 Pain in thoracic spine; R07.81 Pleurodynia; F10.120 Alcohol abuse with intoxication, uncomplicated; I10 Essential (primary) hypertension; Z87.311 Personal history of (healed) other pathological fracture; Z87.828 Personal history of other (healed) physical injury and trauma; Z90.49 Acquired absence of other specified parts of digestive tract; Z88.5 Allergy status to narcotic agent; Z88.8 Allergy status to other drugs, medicaments and biological substances
CPT/HCPCS: 71250; 72128; 93005; 96372; 99284; A9270; J1885

== ENCOUNTER 2024-06-16 13:09 | Emergency (ER) | payer MEDICAID ==
[2024-06-16] MEDS: Lidocaine 4% 1 each Patch TOP ONE (14:40)
== END 2024-06-16 15:14 | disposition home or self-care (01) ==
LOC: MW.ED 13:09
DX: F10.120 Alcohol abuse with intoxication, uncomplicated (principal); I10 Essential (primary) hypertension; F17.210 Nicotine dependence, cigarettes, uncomplicated; Z90.49 Acquired absence of other specified parts of digestive tract; Z88.5 Allergy status to narcotic agent; Z88.8 Allergy status to other drugs, medicaments and biological substances; Y90.9 Presence of alcohol in blood, level not specified
CPT/HCPCS: 99283; A9270

== ENCOUNTER 2024-06-16 17:42 | Emergency (ER) | payer MEDICAID | END 2024-06-16 20:32 | LOC: MW.ED 17:42 | DX: M54.9 Dorsalgia, unspecified (principal); F10.10 Alcohol abuse, uncomplicated; I10 Essential (primary) hypertension; F17.210 Nicotine dependence, cigarettes, uncomplicated; Z75.8 Other problems related to medical facilities and other health care; Z88.8 Allergy status to other drugs, medicaments and biological substances; Z90.49 Acquired absence of other specified parts of digestive tract | CPT/HCPCS: 70450; 70450-26; 71250; 71250-26; 72125; 72125-26; 72128; 72128-26; 72131; 72131-26; 99284 ==

== ENCOUNTER 2024-06-17 04:04 | Emergency (ER) | payer MEDICAID ==
[2024-06-17] MEDS: Nicotine 21 MG/24 Hr Patch TRDERM ONE (04:51)
[2024-06-17] MEDS: Lidocaine 4% 1 each Patch TOP SCH (04:51)
[2024-06-17] MEDS: PHENobarbital Sodium 130 MG/ML SDV IM ONE (05:14)
== END 2024-06-17 05:23 ==
LOC: MW.ED 04:04
DX: F10.10 Alcohol abuse, uncomplicated (principal); Y90.7 Blood alcohol level of 200-239 mg/100 ml; I10 Essential (primary) hypertension; Z90.49 Acquired absence of other specified parts of digestive tract; Z88.5 Allergy status to narcotic agent; Z88.8 Allergy status to other drugs, medicaments and biological substances; Z79.899 Other long term (current) drug therapy
CPT/HCPCS: 36415; 80307; 96372; 99284; A9270; J2560

== ENCOUNTER 2024-06-26 16:21 | Emergency (ER) | payer MEDICAID | END 2024-06-26 20:23 | disposition home or self-care (01) | LOC: MW.ED 16:21 | DX: F10.920 Alcohol use, unspecified with intoxication, uncomplicated (principal); I10 Essential (primary) hypertension; Z90.49 Acquired absence of other specified parts of digestive tract; Z88.5 Allergy status to narcotic agent; Z88.8 Allergy status to other drugs, medicaments and biological substances | CPT/HCPCS: 70450; 70450-26; 99283; 99284 ==

== ENCOUNTER 2024-07-04 22:22 | Emergency (ER) | payer MEDICAID ==
[2024-07-04] MEDS ORDERED: Sodium Chloride 0.9% 10 ML Syringe FLUSH PRN (22:33)
[2024-07-04] MEDS ORDERED: Sodium Chloride 0.9% 2.5 ML Syringe FLUSH PRN (22:33)
[2024-07-04 22:52] LABS: BASOPHILS ABSOLUTE AUTO 0.04 K/uL (0.00-0.20); EOSINOPHILS ABSOLUTE AUTO 0.09 K/uL (0.00-0.45); EOSINOPHILS PERCENT AUTO 2.3 % (0.0-6.0); HEMATOCRIT 39.7 % (42.0-52.0); HEMOGLOBIN 14.2 g/dL (14.0-18.0); LYMPHOCYTES ABSOLUTE AUTO 1.78 K/uL (1.00-4.80); MEAN CORPUSCULAR HEMOGLOBIN 34.9 pg (28.0-32.0); MEAN CORPUSCULAR HGB CONC 35.8 g/dL (32.0-36.0); MEAN CORPUSCULAR VOLUME 97.5 fL (83.0-99.0); MONOCYTES PERCENT AUTO 10.3 % (0.0-8.0); NEUTROPHILS ABSOLUTE AUTO 1.56 K/uL (1.80-7.70); NEUTROPHILS PERCENT AUTO 40.4 % (41.0-71.0); PLATELET COUNT,PLT 112 K/uL (150-400); RED BLOOD CELL COUNT 4.07 M/uL (4.52-5.90); WHITE BLOOD CELL COUNT,WBC 3.87 K/uL (3.9-11.3)
[2024-07-04 23:12] LABS: INR 1.05 (0.86-1.11)
[2024-07-04 23:18] LABS: ALANINE AMINOTRANSFERASE,ALT 41 IU/L (14-63); ALBUMIN 3.4 g/dL (3.4-5.0); ALKALINE PHOSPHATASE 98 U/L (46-116); ASPARTATE AMNIOTRANSFERASE,AST 58 IU/L (15-37); BILIRUBIN TOTAL 0.6 mg/dL (0.2-1.0); BLOOD UREA NITROGEN,BUN 10 mg/dL (7.0-18.0); CALCIUM 8.1 mg/dL (8.5-10.1); CHLORIDE,CL 106 mmol/L (98-107); CREATINE KINASE,CK 197 U/L (26-308); CREATININE 0.8 mg/dL (0.8-1.3); ESTIMATED GFR 113 mL/min (>60); GLUCOSE RANDOM 92 mg/dL (74-106); LIPASE 143 U/L (16-77); POTASSIUM,K 3.6 mmol/L (3.5-5.1); PROTEIN TOTAL,TP 6.8 g/dL (6.4-8.2); SODIUM,NA 143 mmol/L (136-148)
== END 2024-07-05 00:45 | disposition home or self-care (01) ==
LOC: MW.ED 22:22
DX: Z59.00 Homelessness unspecified (principal); I10 Essential (primary) hypertension; F17.210 Nicotine dependence, cigarettes, uncomplicated; Z90.49 Acquired absence of other specified parts of digestive tract; Z88.5 Allergy status to narcotic agent; Z88.8 Allergy status to other drugs, medicaments and biological substances; Z75.8 Other problems related to medical facilities and other health care
CPT/HCPCS: 36415; 80053; 82550; 83690; 85025; 85610; 93005; 99284

== ENCOUNTER 2024-07-08 23:44 | Emergency (ER) | payer MEDICAID | END 2024-07-09 07:45 | disposition home or self-care (01) | LOC: MW.ED 23:44 | DX: F10.120 Alcohol abuse with intoxication, uncomplicated (principal); I10 Essential (primary) hypertension; Z90.49 Acquired absence of other specified parts of digestive tract; Z88.5 Allergy status to narcotic agent; Z88.8 Allergy status to other drugs, medicaments and biological substances; Y90.9 Presence of alcohol in blood, level not specified | CPT/HCPCS: 99283; 99284 ==